=== PATIENT | female | born 1960 | race Caucasian/White ===

== ENCOUNTER 2018-07-09 07:47 | Observation (INO) ==
--- NOTE | 2018-07-07 15:26 | Anesthesiology Consultation ---
Date of Service July 07, 2018 Assessment & Plan Chart Review Chart Review: Acceptable Risk for Surgery and Patient NOT seen in Pre Admission Testing Consults Requested none ASA ASA4 Proposed Anesthesia Anesthesia Type: General Regional Regional Laterality: Left Site: Supraclavicular History Surgery Operation Date: 07/09/18 10:00 Proposed Procedures p Left Proximal Ulna/Olecranon Open Reduction Internal Fixation - Alexandru Mejias DO Height/Weight Height: 5 ft 2 in Weight: 81.647 kg Allergies Allergy/AdvReac Type Severity Reaction Status Date / Time nickel Allergy Intermediate BLISTERS Verified 07/07/18 13:30 No Known Drug Allergies Allergy Verified 07/07/18 13:48 Medications Home Medications Medication Instructions Recorded Confirmed Last Taken albuterol sulfate 2 puff INHALATION QID PRN 07/07/18 07/07/18 Unknown amlodipine 5 mg PO QAM 07/07/18 07/07/18 Unknown aspirin [Aspirin Low Dose] 81 mg PO QAM 07/07/18 07/07/18 Unknown atorvastatin 40 mg PO HS 07/07/18 07/07/18 Unknown calcium carbonate-vitamin D3 1 tab PO BID 07/07/18 07/07/18 Unknown [Calcium 600 + D(3)] carvedilol 12.5 mg PO BID 07/07/18 07/07/18 Unknown duloxetine 20 mg PO BID 07/07/18 07/07/18 Unknown gabapentin 300 mg PO BID 07/07/18 07/07/18 Unknown hydrochlorothiazide 12.5 mg PO QAM 07/07/18 07/07/18 Unknown hydrocodone-acetaminophen 1 tab PO Q6H PRN 07/07/18 07/07/18 Unknown ketorolac 10 mg PO Q8H PRN 07/07/18 07/07/18 Unknown lisinopril 40 mg PO QAM 07/07/18 07/07/18 Unknown nitroglycerin 1 dose SUBLINGUAL UD PRN 07/07/18 07/07/18 Unknown omeprazole 20 mg PO QAM 07/07/18 07/07/18 Unknown tramadol 50 mg PO BID PRN 07/07/18 07/07/18 Unknown Past Medical History Medical History Anxiety CAD (coronary artery disease) Chronic back pain Chronic obstructive pulmonary disease WELL CONTROLLED Congestive heart failure Degenerative disc disease Depression GERD (gastroesophageal reflux disease) History of tooth extraction Hyperlipidemia Hypertension Osteoarthritis Stroke ~2013. TREATED AT [facility]. TAKES ASPIRIN DAILY. NO DEFICITS Past Family History Family History Brother Family hx of colon cancer Father Family hx of colon cancer, Onset Age: 80 Past Surgical History Surgical History History of breast biopsy (-)LEFT History of cardiac cath History of cataract surgery BILATERAL History of section X3 History of colonoscopy Past Anesthesia History No Hx of Anesthesia Complications and No Family Hx of Anesthesia Complications History of PONV No Motion Sickness Screening History of Motion Sickness: No Social History Smoking Status: Former smoker tobacco type: cigarettes Do You Dip or Chew Tobacco: No Smoking End Date: 1999 Hx Alcohol Use: No Hx Substance Use: No substance use type: does not use Exercise / Class Metabolic Activity III < 4 Walking/Shop/Light housework Testing Electrocardiogram Date: 05/25/18 Findings: + SB @ (at 56) Echocardiogram Date: 06/02/18 EF: 55 LV Function: normal RWMA: + none Other Findings: + LVH (mild); no diastolic dysfunction Valvular Disease: + no significant valvular disease Stress Test Date: 06/02/18 Type: DSE Findings: + WNL; no EKG changes and no ischemia Resting EF: 55 Resting RWMA: + none Valvular Disease: no significant valvular disease Cardiac Catheterization Date: 07/30/12 Findings: + pertinent finding (minor non-obstructive CAD) Intervention: no none
--- NOTE | 2018-07-08 14:38 | History and Physical Report ---
DATE OF ADMISSION: 07/09/2018 CHIEF COMPLAINT: Left elbow pain. HISTORY OF PRESENT ILLNESS: Carla is delightful. She is 58. She is compromised. She suffered a severe injury to her left upper extremity, specifically her left elbow and left olecranon. She is scheduled for surgery tomorrow, 07/09/2018, for an open reduction and internal fixation. She was splinted in the ER and sent to our office for evaluation. PAST MEDICAL HISTORY: Heart disease, high cholesterol, hypertension. PAST SURGICAL HISTORY: Wrist surgery, . ALLERGIES: Negative. MEDICATIONS: Lisinopril, aspirin, Flexeril, calcium, ProAir, Ultram, Prilosec. FAMILY HISTORY: Positive for heart disease and diabetes. SOCIAL HISTORY: No alcohol, no tobacco. REVIEW OF SYSTEMS: She denies any blurred vision, double vision, tinnitus, vertigo. Denies any chest pain or palpitation. She does have occasional swelling of hands and feet. Positive for wheezing. Positive for numbness and tingling. Positive for hot and cold intolerance, no bowel and bladder incontinence, and no thyroid issues. PHYSICAL EXAMINATION: GENERAL: She is 5 feet 2 and 185 pounds. Alert and oriented. Mentation normal. VITAL SIGNS: Blood pressure 138/80, pulse 80, respiratory rate is 16. CARDIAC: Normal S1 and S2, 80 beats per minute. LUNGS: Clear. EXTREMITIES: Left elbow swollen. Slight decreased range of motion. Slight decrease in sensation but no breakage of skin. No adenopathy. IMPRESSION: Displaced comminuted fracture, left olecranon. PLAN: Includes open reduction and internal fixation of her left olecranon, [facility].
[~2018-07-09 07:47] MED LIST: LR 15ML/HR IV SCH; SODIUM CHLORIDE 0.9% 1000ML IV SCH
[2018-07-09] MEDS ORDERED: CEFAZOLIN 2,000 MG/15 ML IV PUSH IV ONE (08:10)
[2018-07-09] MEDS ORDERED: CEFAZOLIN 2000MG 2,000 MG/15 ML SYR IV SCH (08:30)
--- NOTE | 2018-07-09 08:34 | History & Physical Bridge Note ---
Date of Service July 09, 2018 History & Physical Bridge Note I have examined the patient, reviewed the History & Physical and in the interval since the performance of the History & Physical I have noted the following changes of clinical significance: no changes noted
[2018-07-09] MEDS ORDERED: PROPOFOL IV EMULSION 10 MG/ML 20 ML VIAL IV ONE (09:23)
[2018-07-09] MEDS ORDERED: CISATRACURIUM BESYLATE IV SOLN 2 MG/ML 10 ML VIAL IV ONE (09:23)
[2018-07-09] MEDS ORDERED: fentaNYL citrate 100 MCG/2 ML VIAL ONE (09:23)
[2018-07-09] MEDS ORDERED: MIDAZOLAM HCL 1 MG/ML 2ML VIAL ONE (09:23)
[2018-07-09] MEDS ORDERED: GLYCOPYRROLATE 0.2 MG/ML VIAL ONE (09:23)
[2018-07-09] MEDS ORDERED: NEOSTIGMINE METHYLSULFATE 5 MG/5 ML SYR ONE (09:23)
[2018-07-09] MEDS ORDERED: SUCCINYLCHOLINE CHLORIDE 20 MG/ML 10 ML VIAL ONE (09:23)
[2018-07-09] MEDS ORDERED: LIDOCAINE HCL 2% 2 ML VIAL/AMP(20MG/ML) INFIL ONE (09:23)
[2018-07-09] MEDS ORDERED: ONDANSETRON INJ 2 MG/ML 2 ML VIAL ONE (09:23)
[2018-07-09] MEDS ORDERED: DEXAMETHASONE SOD INJ 4 MG/ML VIAL ONE (09:23)
[2018-07-09] MEDS ORDERED: HYDROmorphone INJ 2 MG/ML SYR/VIAL ONE (09:28)
[2018-07-09] MEDS ORDERED: ePHEDrine sulfate 50 MG/ML AMP IV PRN (09:45)
[2018-07-09] MEDS ORDERED: HYDROmorphone INJ 1 MG/ML SYRINGE IV PRN (09:45)
[2018-07-09] MEDS ORDERED: ONDANSETRON INJ 2 MG/ML 2 ML VIAL IV PRN ×2 (09:45→14:01)
[2018-07-09] MEDS ORDERED: ATROPINE SULFATE 0.1 MG/ML 10ML SYR IV PRN (09:45)
[2018-07-09] MEDS ORDERED: BUPIVACAINE 0.5 % 5 MG/1 ML MPF 30ML VIAL ONE (11:36)
--- NOTE | 2018-07-09 11:48 | Post Operative Brief Note ---
Immediate Post Op Note v1 Date of Surgery July 09, 2018 Pre & Post Diagnosis Operation Date: 07/09/18 10:00 Pre-Op Diagnosis: Left Olecranon/Proximal Ulna Fracture Post-Op Diagnosis: Left Olecranon/Proximal Ulna Fracture Procedure Operation Date: 07/09/18 10:00 Actual Procedures p Left Proximal Ulna / Olecranon Open Reduction Internal Fixation(Left) - Alexandru Mejias DO Surgeon Alexandru Mejias DO Patient Access Manager Svitlana Estimated Blood Loss 100 Findings Consistent with Post-Op Diagnosis
--- NOTE | 2018-07-09 12:08 | Fluoroscopy Report ---
FL elbow LT 2V CLINICAL HISTORY: Elbow fracture. Internal fixation. COMPARISON STUDY: 07/01/2018 FLUOROSCOPY TIME: 9 seconds. NUMBER OF FLUOROSCOPIC IMAGES: 1 FINDINGS: Intraoperative lateral view of the elbow demonstrate internal fixation of a olecranon fract ure. IMPRESSION: Internally fixated olecranon fracture. Electronically signed by: Mckay Martinez M.D. 07/09/2018 12:07 PM
[2018-07-09] MEDS ORDERED: LABETALOL HCL IV 5 MG/ML 20ML IV ONE (12:14)
[2018-07-09] MEDS: fentaNYL citrate 100 MCG/2 ML VIAL IV PRN ×4 (12:31→13:02)
--- NOTE | 2018-07-09 12:42 | Operative Report ---
DATE OF OPERATION: 07/09/2018 PREOPERATIVE DIAGNOSIS: Severe comminuted fracture, left olecranon. POSTOPERATIVE DIAGNOSIS: Severe comminuted fracture, left olecranon. PROCEDURE: Include open reduction and internal fixation, left olecranon. SURGEON: Alexandru Mejias DO COMPLICATIONS: Zero. BLOOD LOSS: 100 mL. ANESTHETIC: General intubated. IMPLANTS USED: By the [employer], olecranon plate, titanium. DESCRIPTION OF PROCEDURE: The patient was taken to the operating room and general intubated anesthetic provided to the patient, kept in the left lateral decubitus position. We scrubbed her elbow. We prepped her elbow, draped sterilely. There was no breakage of sterile technique. We made a skin incision, fascial incision. I came readily down on to the olecranon. We provisionally reduced the olecranon fracture with provisional K wires and C wires. I was able to readily get a plate on the posterior aspect of the olecranon, locked proximally and distally with assortment of locking screws and cortex screws. I was pleased with the reduction, it was near anatomic. We irrigated, closed in layers with #1 Vicryl, 2-0 and staple gun. Sterile dressings applied. The patient returned to PACU stable. There were no apparent complications. I attest to the content of the Intraoperative Record and any orders documented therein. Any exception s are noted below.
[2018-07-09] MEDS ORDERED: LABETALOL HCL IV 5 MG/ML 20ML IV STA (12:49)
--- NOTE | 2018-07-09 13:31 | Anesthesiology Progress Note ---
Date of Service July 09, 2018 Anesthesia Post Procedure Vital Signs Vital Signs: Temp Pulse Pulse Resp BP Pulse Ox 07/09/18 13:30 36.2 C L 63 13 142/82 H 98 07/09/18 13:20 71 18 145/87 H 97 07/09/18 13:10 60 16 138/82 94 07/09/18 13:00 70 21 146/84 H 92 07/09/18 12:50 60 12 139/84 94 07/09/18 12:40 66 13 150/90 H 90 07/09/18 12:30 65 16 145/91 H 94 07/09/18 12:20 91 H 12 150/92 H 99 07/09/18 12:12 88 18 170/107 H 95 07/09/18 12:02 36.1 C L 85 22 179/102 H 95 07/09/18 08:30 36.8 C 70 20 157/86 H 94 Pain Intensity Left Elbow: Pain Intensity: 4 Notes Mental Status: alert / awake / arousable and participated in evaluation Patient Amnestic to Procedure: Yes Nausea / Vomiting: adequately controlled Pain: adequately controlled Airway Patency, RR, SpO2: stable & adequate BP & HR: stable & adequate Hydration State: stable & adequate Anesthetic Complications: no major complications apparent and Pt Satisfied with anesthetic care
[2018-07-09] MEDS ORDERED: BISACODYL 10 MG SUPP PR PRN (14:01)
[2018-07-09] MEDS ORDERED: HYDROCODONE/ACETAMOPHEN 5/325MG TAB PO PRN (14:01)
[2018-07-09] MEDS ORDERED: TRAMADOL HCL 50 MG TABLET PO PRN (14:01)
[2018-07-09] MEDS ORDERED: ALBUTEROL HFA 8 GM INHALER INH PRN (14:01)
[2018-07-09] MEDS ORDERED: KETOROLAC TROMETHAMINE 10 MG TABLET PO PRN (14:01)
[2018-07-09] MEDS ORDERED: MAGNESIUM HYDROXIDE SUSP 30 ML UDC PO PRN (14:01)
[2018-07-09] MEDS ORDERED: NITROGLYCERIN SL 0.4 MG/TAB TAB SL PRN (14:26)
[2018-07-09] MEDS: OXYCODONE HCL IR 5 MG TAB (IMMEDIATE RELEASE) PO PRN ×2 (14:37→23:45)
[2018-07-09] MEDS ORDERED: NURSING DECISION MEDICATION ONE (16:09)
[2018-07-09] MEDS ORDERED: COUGH DROP (SUGAR FREE) LOZ 24 LOZ/1 BOX BUCCAL PRN (16:12)
[2018-07-09] MEDS ORDERED: COUGH DROP (SUGAR FREE) LOZ 24 LOZ/1 BOX BUCCAL ONE (16:13)
[2018-07-09] MEDS: ACETAMINOPHEN 1,000 MG/100 ML VIAL IV SCH ×2 (16:14→23:39)
[2018-07-09] MEDS: CEFAZOLIN 2000MG 2,000 MG/15 ML SYR IV SCH (19:46)
[2018-07-09] MEDS: DULOXETINE HCL 20 MG CAP PO SCH (20:16)
[2018-07-09] MEDS: CARVEDILOL 12.5 MG TAB PO SCH (20:17)
[2018-07-09] MEDS: GABAPENTIN 300 MG CAP PO SCH (20:17)
[2018-07-09] MEDS: CALCIUM 600MG + VIT D 400 IU TAB PO SCH (20:18)
[2018-07-09] MEDS ORDERED: SENNA 8.6 MG TAB PO SCH (21:00)
[2018-07-09] MEDS ORDERED: ATORVASTATIN 40 MG TAB PO SCH (21:00)
[2018-07-10] MEDS: ACETAMINOPHEN 1,000 MG/100 ML VIAL IV SCH ×2 (01:16→07:29)
[2018-07-10] MEDS: CEFAZOLIN 2000MG 2,000 MG/15 ML SYR IV SCH (01:16)
--- NOTE | 2018-07-10 08:27 | Anesthesiology Progress Note ---
Date of Service July 10, 2018 Anesthesia Post Procedure Vital Signs Vital Signs: Temp Pulse Pulse Pulse Pulse Resp BP 07/10/18 07:09 36.5 C 66 16 165/97 H 07/10/18 04:18 36.5 C 72 16 152/91 H 07/09/18 23:27 36.5 C 74 15 159/91 H 07/09/18 21:10 07/09/18 21:09 07/09/18 20:14 72 157/98 H 07/09/18 19:28 36.5 C 77 16 165/97 H 07/09/18 16:54 36.4 C L 77 18 156/91 H 07/09/18 15:53 36.5 C 70 18 148/85 H 07/09/18 15:00 36.5 C 80 16 161/99 H 07/09/18 14:39 36.9 C 68 18 154/95 H 07/09/18 14:00 36.4 C L 67 14 162/84 H 07/09/18 13:30 36.2 C L 63 13 142/82 H 07/09/18 13:20 71 18 145/87 H 07/09/18 13:10 60 16 138/82 07/09/18 13:00 70 21 146/84 H 07/09/18 12:50 60 12 139/84 07/09/18 12:40 66 13 150/90 H 07/09/18 12:30 65 16 145/91 H 07/09/18 12:20 91 H 12 150/92 H 07/09/18 12:12 88 18 170/107 H 07/09/18 12:02 36.1 C L 85 22 179/102 H 07/09/18 08:30 36.8 C 70 20 157/86 H Pulse Ox 07/10/18 07:09 98 07/10/18 04:18 96 07/09/18 23:27 97 07/09/18 21:10 98 07/09/18 21:09 89 L 07/09/18 20:14 07/09/18 19:28 91 07/09/18 16:54 95 07/09/18 15:53 95 07/09/18 15:00 94 07/09/18 14:39 91 07/09/18 14:00 97 07/09/18 13:30 98 07/09/18 13:20 97 07/09/18 13:10 94 07/09/18 13:00 92 07/09/18 12:50 94 07/09/18 12:40 90 07/09/18 12:30 94 07/09/18 12:20 99 07/09/18 12:12 95 07/09/18 12:02 95 07/09/18 08:30 94 Pain Intensity Left Elbow: Pain Intensity: 8 Notes Mental Status: alert / awake / arousable and participated in evaluation Patient Amnestic to Procedure: Yes Nausea / Vomiting: adequately controlled Pain: adequately controlled Airway Patency, RR, SpO2: stable & adequate BP & HR: stable & adequate Hydration State: stable & adequate Anesthetic Complications: no major complications apparent and Pt Satisfied with anesthetic care
[2018-07-10] MEDS: CALCIUM 600MG + VIT D 400 IU TAB PO SCH (08:48)
[2018-07-10] MEDS: DULOXETINE HCL 20 MG CAP PO SCH (08:48)
[2018-07-10] MEDS: CARVEDILOL 12.5 MG TAB PO SCH (08:48)
[2018-07-10] MEDS: GABAPENTIN 300 MG CAP PO SCH (08:49)
[2018-07-10] MEDS ORDERED: hydroCHLOROthiazide 25 MG TAB PO SCH (09:00)
[2018-07-10] MEDS ORDERED: ASPIRIN 81 MG ECTAB PO SCH (09:00)
[2018-07-10] MEDS ORDERED: LISINOPRIL 40 MG TAB PO SCH (09:00)
[2018-07-10] MEDS ORDERED: AMLODIPINE BESYLATE 5 MG TAB PO SCH (09:00)
[2018-07-10] MEDS ORDERED: PANTOprazole 40 MG TAB PO SCH (09:00)
--- NOTE | 2018-07-10 09:42 | Discharge Summary ---
She is improved and stable this morning. She was admitted yesterday. I thought she would be an outpatient procedure. Observation status. She had increasing pain, some hypertension, was admitted to my service yesterday for her elbow fracture. This morning, she is improved, stable. Blood pressure controlled. Vital signs stable. Alert, oriented. Pain controlled. She will be discharged home later today, improved and stable condition. Instructions given. Precautions given. Followup should be done in about 10 days. Prescription for [place] on her chart.
== END 2018-07-10 12:58 | disposition home or self-care (01) ==
LOC: ASU 07:47 → 3E 07:47

== ENCOUNTER 2022-12-31 07:08 | Inpatient (IN) ==
--- NOTE | 2022-11-14 16:04 | Anesthesiology Consultation ---
Date of Service November 14, 2022 Assessment & Plan (1) Encounter for pre-operative examination: - Check BSG AM DOS - COVID screening: Per assessment on 11/14: No known COVID-19 positive contacts or current COVID-19 related symptoms. Travel screen negative. At surgeon discretion if preop Covid testing being done. - S/P colonoscopy (09/26/22): MAC at [facility]. No issues noted per post-op anesthesia progress note. - Orthopedics visit (11/01/22): "MRI of the cervical spine performed at [facility] only reports available no images available: There is presence of multiple-level degenerative changes with varying spinal stenosis most obvious at C4-5, C5-6 and C6-7 level. There is presence of increased cord signal at C5-6 and C6-7 with concern for cord edema.. At this point patient is neurologically stable but has early findings of cervical myeloradiculopathy. We discussed the treatment options including continued conservative treatment as well as that of surgical intervention. At this point of time patient would like to try physical therapy and consider a neck brace. A CT scan of the cervical spine was ordered for planning any further intervention taking into consideration early signs of myelopathy. Role of pain management discussed. Warning signs were explained. Additional recommendations: * Activity modification * Physical therapy exercises for gentle ROM, muscle relaxation and strengthening as tolerated * Brace for spinal stabilization and pain relief as tolerated * Pain medications as per the primary care. Adverse effects and appropriate precautions were discussed. * If the patient has persistence or worsening of symptoms additional investigations will be recommended. Warning signs have been discussed. Follow up: 2-3 months for reassessment, earlier if any worsening of symptoms."> C-spine xray 11/01/22 with no findings of dynamic instability on flexion-extension views. Mild degenerative changes on 11/05/22 CT C-spine. - Otolaryngology visit (11/01/22): Nasal mass stable since 2019. Discussed surgery but do not feel nasal biopsy needed at this time given carotid disease- recommend waiting until carotid surgery performed and consider surgery for further evaluation of nasal mass 02/2023. - Cardiology visit (11/08/22): "Patient has bradycardia. She also had a failure to achieve target heart rate during stress testing. This may be secondary to chronotropic incompetence or may be secondary to her beta-ashwin. Today, she is also hypotensive which likely accounts for her not feeling well. She does not appear acutely ill. I will reduce her carvedilol dose and she should continue to hydrate adequately.. YOUNG.. She is not having the symptoms at this time. She did have it previously which is why the stress test was performed. Based on findings on the stress test she may have chronotropic incompetence or this may be secondary to deconditioning. She did give maximum effort for the stress test and did not demonstrate any evidence of myocardial ischemia, therefore, it seems less likely that her symptoms are ischemic in origin particularly since she had prior catheterization not demonstrating significant disease and she does not have anginal symptoms on a daily basis. We will obtain an echocardiogram given her history of "congestive heart failure". The echo done as part of her stress test less than 2 years ago was not suggestive of abnormalities which would cause dyspnea... Given her bradycardia and hypotensive status with recent syncopal episode I recommend reducing the carvedilol to 6.25 mg p.o. twice daily.. CAD (coronary artery disease).. Mild nonocclusive. No anginal symptoms. No change in her dyspnea on exertion which was previously evaluated by stress testing and showed no evidence of ischemia. Continue guideline directed medical therapy for secondary prevention of coronary disease with aspirin, statin, beta-ashwin, and JILLIAN inhibitor. Agree with use of Plavix given her history of stroke." > Patient had actually had echo ordered by surgeon's office preoperatively, done 10/30/22- EF 54%, no RWMA, no significant valvular disease ([facility], report scanned into [facility]). - Allergy visit (11/13/22): "The patient has been identified to have severe stenosis of the right internal carotid artery and is due to undergo a right- sided transcarotid artery revascularization procedure with stent placement in the near future. 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 To better objectively assess the presence of a possible allergic contact dermatitis, T.R.U.E. patch testing is being performed. However, it was explained to the patient that in the setting of a supportive clinical history T.R.U.E. patch testing cannot exclude the possibility of a true allergic contact dermatitis. For this reason, regardless of the results of T.R.U.E. patch testing, she may benefit from undergoing her transcarotid artery revascularization procedure with an alternative metal stent other than nickel.. Patient should discuss with her surgeon about undergoing a transcarotid artery revascularization procedure with an alternative metal stent other than nickel" > Allergy Note/recommendations forwarded to surgeon. Nurse with Dr. Montoya's office ([facility]) states that surgeon being made aware of urogynaecologist recommendations. - Case reviewed with Dr. Singh. Patient acceptable risk to proceed with given surgery pending evaluation AM DOS. Chart Review Chart Review: Patient NOT seen in Pre Admission Testing History Surgery Operation Date: 11/20/22 12:20 Proposed Procedures p Right Transcarotid Artery Revascularization - Vladimir Montoya MD Height/Weight Height: 5 ft 2 in Weight: 71.668 kg Allergies Allergy/AdvReac Type Severity Reaction Status Date / Time nickel Allergy Intermediate BLISTERS Verified 11/14/22 15:30 No Known Drug Allergies Allergy NKDA Verified 11/14/22 15:30 Medications Home Medications Medication Instructions Recorded Confirmed Last Taken calcium carbonate 600 mg-vitamin 1 cap PO BID #180 caps 11/16/20 11/14/22 09/24/22 D3 5 mcg (200 unit) capsule (Calcium 600 + D(3)) mometasone 50 mcg/actuation nasal 2 spray intranasal DAILY PRN nasal 11/24/20 11/14/22 09/24/22 spray congestion #51 grams albuterol sulfate 90 mcg/actuation 2 puff inhalation QID PRN SOB 90 12/18/21 11/14/22 09/25/22 aerosol inhaler days #25.5 grams amlodipine 5 mg tablet 5 mg PO QAM #90 tabs 12/18/21 11/14/22 09/24/22 budesonide-formoterol HFA 80 2 puff inhalation BID 90 days 12/18/21 11/14/22 Unknown mcg-4.5 mcg/actuation aerosol #30.6 grams inhaler (Symbicort) hydrochlorothiazide 12.5 mg tablet 12.5 mg PO QAM #90 tabs 12/18/21 11/14/22 09/24/22 metformin 500 mg tablet 500 mg PO BID #180 tabs 12/18/21 11/14/22 09/19/22 omeprazole 20 mg capsule,delayed 20 mg PO QAM #90 caps 12/18/21 11/14/2209/24 release nitroglycerin 0.3 mg sublingual 0.3 mg sublingual Q5M PRN chest 12/25/21 11/14/22 Unknown tablet pain #100 tabs diclofenac sodium 75 mg 75 mg PO BID PRN pain #60 tabs 01/25/22 11/14/22 Unknown tablet,delayed release duloxetine 20 mg capsule,delayed 20 mg PO BID #30 caps 03/22/22 11/14/22 09/24/22 release aspirin 325 mg tablet,delayed 325 mg PO QAM 08/09/22 11/14/22 09/19/22 release ezetimibe 10 mg tablet 10 mg PO QAM 08/09/22 11/14/22 09/24/22 lisinopril 20 mg tablet 20 mg PO QAM 08/09/22 11/14/22 09/24/22 sodium chloride, sodium 1 ea UD 09/18/22 11/14/22 Unknown bicarb-nasal rinse squeeze bottle with packet ([employer] Sinus Rinse Complete with packet) carvedilol 6.25 mg tablet 6.25 mg PO BID #60 tabs 11/08/22 11/14/22 Unknown clopidogrel 75 mg tablet 75 mg PO DAILY 11/08/22 11/14/22 Unknown fluticasone propionate 50 2 spray intranasal DAILY 11/08/22 11/14/22 Unknown mcg/actuation nasal spray,suspension prenat.vits,mildred,[id number] 1 tab PO DAILY 11/08/22 11/14/22 Unknown azelastine 137 mcg (0.1 %) nasal 2 spray intranasal BID PRN nasal 11/13/22 11/14/22 Unknown spray aerosol congestion #30 mL fluticasone propionate 50 2 spray intranasal DAILY #16 grams 11/13/22 11/14/22 Unknown mcg/actuation nasal spray,suspension atorvastatin 40 mg tablet 40 mg PO HS #90 tabs 11/15/22 Unknown Past Medical History Medical History Abnormal MRI, cervical spine C-spine xray 11/01/22 with no findings of dynamic instability on flexion- extension views. Allergic contact dermatitis CAD (coronary artery disease) Mild, non-occlusive per cardiology records Cervical spinal stenosis c-spine MRI 08/30/22 with multiple-level degenerative changes with varying spinal stenosis most obvious at C4-5, C5-6 and C6-7 level. There is presence of increased cord signal at C5-6 and C6-7 with concern for cord edema c-spine xray 11/01/22 with No findings of dynamic instability on flexion- extension views. c-spine CT 11/05/22 with Mild degenerative changes. Conservative management recommended per 10/2022 ortho evaluation with 2-3 month follow-up recommended. 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 If she develops upper respiratory symptoms, then that would be a separate issue." Osteoarthritis Prediabetes "takes metformin for weight loss" per patient Stenosis of right internal carotid artery Neck CTA 08/29/22 [facility]- 80% stenosis of the proximal right ICA > referred to vascular surgery Stroke Approximately 2013, no deficits Past Family History Family History Brother Family hx of colon cancer Diabetes Myocardial infarction Hypertension Father Family hx of colon cancer, Onset Age: 80 Myocardial infarction Hypertension Sister Diabetes Myocardial infarction History of anesthesia problem No further details per patient. Patient has not had any personal issues with anesthesia. Hypertension Other Colorectal cancer Denies family history of Ovarian cancer Prostate cancer Breast cancer Past Surgical History Surgical History History of breast biopsy Left ("negative") History of cardiac cath 2012 - no stents History of cataract surgery R/L History of section X3 History of colonoscopy History of laminectomy History of lumbar laminectomy for spinal cord decompression History of surgery on wrist History of tooth extraction Social History Smoking Status: Former smoker tobacco type: cigarettes Do You Dip or Chew Tobacco: No Smoking End Date: 2003 Hx Alcohol Use: Yes Alcohol type: wine alcohol intake frequency: holidays/special occasions only Hx Substance Use: No substance use type: does not use Lab Results Anesthesia Preop Results Results Anesthesia Widget: WBC 5.99 K/ul (4.8-10.8) 11/13/22 Hgb 13.4 g/dl (12.0-16.0) 11/13/22 Hct 41.2 % (37.0-47.0) 11/13/22 Plt 153 K/uL (130-400) 11/13/22 Na 141 mmol/L (136-145) 11/13/22 K 3.8 mmol/L (3.5-5.1) 11/13/22 Cl 105 mmol/L (98-107) 11/13/22 CO2 30 mmol/L (21-32) 11/13/22 BUN 28 mg/dl (6-23) H 11/13/22 Creat 0.73 mg/dl (0.6-1.2) 11/13/22 Glucose Level 84 mg/dl (70-99(Fasting)) 11/13/22 PT 10.7 Seconds (9.0-12.0) 11/13/22 PTT 24.5 Seconds (21.0-31.0) 11/13/22 INR 1.0 (0.9-1.1) 11/13/22 Blood Type A Positive 11/13/22 Antibody Screen NEGATIVE 11/13/22 Testing Electrocardiogram Date: 11/08/22 SB at 54bpm. "Otherwise normal ECG" Chest X-Ray Date: 09/25/22 Mild blunting of the costophrenic angles may be secondary to atelectasis versus trace pleural effusions. No airspace consolidation typical for pneumonia. Echocardiogram Date: 10/30/22 EF 65%. No RWMA. Mild cLVH. Probably type 2 diastolic function with indeterminate left atrial pressure. Modate LAD. Mild RAD. Trace to mild TR. Stress Test Date: 01/03/21 Type: exercise No evidence of major myocardial ischemia at faitiguing workload at 79% MPHR. Nondiagnostic stress echo d/t failure to achieve target heart rate. Abnormal ECG response to exercise treadmill test. Very poor exercise tolerance. 4.6 METS. Rest echo with normal systolic function and no significant valvular disease. EF 60%. Other Testing Head CTA Date: 08/29/[address] angiogram of the head. Numerous punctate calcifications scattered throughout the brain concerning for neurocysticercosis. Neck CTA Date: 08/29/22 There is an 80% stenosis of the proximal right ICA. Critical spinal canal stenosis at C4-5. Recommend MRI of the cervical spine to evaluate for myelopathy. Cervical spine MRI Date: 08/30/22 Moderate disc degeneration at C4-5, C5-6 and C6-7 with mild disc degeneration at C2-3 and C3-4 with annular disc bulging flattening the ventral thecal sac and flattening the ventral cord at C4-5, C5-6 and C6-7 with increased cord signal at C5-6 and C6-7 concern for cord edema. There is a critical spinal canal stenosis at C4-5, C5-6 and C6-7. There is no evidence of neural foraminal stenosis. There is minimal to mild facet arthropathy at C2-3 through C7-T1 with mild synovitis. No evidence of fracture, infection or tumor. CT sinus Date: 10/15/22 Soft tissue lesions extend posterior to bilateral inferior turbinates into nasopharynx bilaterally, unchanged compared with 03/[address] Left sphenoid sinus air-fluid level/frothy mucus may indicate acute sinusitis. All paranasal sinus outflow tracts are patent, but narrowed (see above). > 5 mm right maxillary sinus mucosal thickening. Trace (< 3 mm) right frontal sinus, bilateral ethmoid air cell, left maxillary sinus, and left sphenoid sinus mucosal thickening. Hypoplastic left frontal sinus. Mild left olfactory recess opacification, without expansion. Scattered brain parenchymal calcifications; anterior calcifications are stable compared with 03/[address] Brain MRI Date: 08/30/22 No evidence of acute intracranial pathology. Moderate nonspecific white matter changes. Findings concerning for a heterogeneously enhancing mass in the nasopharynx associated with a right inferior turbinate. Recommend direct visualization for further evaluation. C-spine xray Date: 11/01/22 FINDINGS Mild anterior subluxation of C4 on C5. No findings of dynamic instability on flexion-extension views. the vertebral body heights are maintained. Multilevel endplate osteophytosis and disc space narrowing, most notable (moderate) at C5-C6. Moderate to severe multilevel facet arthropathy. Vascular calcifications. IMPRESSION Degenerative changes, as above, progressed since the prior exam. No findings of dynamic instability on flexion-extension views. CT C-Spine Date: 11/05/22 There is slight straightening of cervical lordosis. The facets articulate normally. There is minimal spondylolisthesis at C4-5. Prominent anterior osteophytes at C5-6 with smaller osteophytes at C4-5 and C6-7. Mild uncovertebral arthropathy on the right at C5-6 with mild impingement on the neural foramen. There is mild degeneration of the atlantodental articulation. Paravertebral soft tissues are unremarkable. Visualized lung apices are clear. Instantly noted are some polypoid lesions projecting into choanae. There are atherosclerotic calcifications in the carotid bifurcations. IMPRESSION Mild degenerative changes as described.
[~2022-12-31 07:08] MED LIST changes: +CEFAZOLIN 2,000 MG/15 ML SYR IV SCH; +LACTATED RINGER'S 1,000 ML BAG IV SCH; -LR 15ML/HR IV SCH; +SODIUM CHLORIDE 0.9% 1000ML 1,000 ML IV SCH; -SODIUM CHLORIDE 0.9% 1000ML IV SCH
[2022-12-31] MEDS ORDERED: REMIFENTANIL HCL 1 MG VIAL IV ONE (07:32)
--- NOTE | 2022-12-31 07:51 | History & Physical Report ---
Date of Service December 31, 2022 History of Present Illness Primary Care Provider: Kelli Gray MD Chief Complaint: _Follow-up to discuss surgery HPI: _Ms. Rouse is a middle-aged female who presents to Dr. Montoya's vascular surgery clinic today to further discuss surgical options of carotid endarterectomy versus TCAR. She was here to discuss this a few weeks ago, however, she became syncopal and was sent to the emergency room. She states that she is feeling better now. She has not had any symptoms of cerebrovascular insufficiency, including amaurosis, extremity weakness numbness or tingling, difficulty speaking or swallowing, facial droop, sudden onset confusion, other complaints. 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 Prior imaging it indicated a severe stenosis of her right ICA at least 90% by CTA. Current Home Meds: (Last Updated 10/21 16:22) DULoxetine (DULoxetine 20 mg oral delayed release capsule) 20 mg PO bid albuterol (albuterol CFC free 90 mcg/inh MDI) 1 puff inhaled qid PRN: as needed for wheezing amLODIPine (amLODIPine 5 mg oral tablet) 5 mg PO Daily aspirin (aspirin 325 mg oral delayed release tablet) 325 mg PO Daily atorvastatin (atorvastatin 40 mg oral tablet) 40 mg PO qhs budesonide-formoterol (budesonide-formoterol 80 mcg-4.5 mcg/inh inhalation aerosol with adapter) 2 puff inhaled bid calcium-vitamin D (calcium with vitamin D 500 mg) 1 tab PO bid carvedilol (carvedilol 12.5 mg oral tablet) 12.5 mg PO bid clopidogrel (Plavix 75 mg oral tablet) 75 mg PO ONCE diclofenac 75 mg PO bid PRN: as needed for pain ezetimibe (Zetia 10 mg oral tablet) 10 mg PO Daily hydroCHLOROthiazide (hydroCHLOROthiazide 12.5 mg oral capsule) 12.5 mg PO Daily lisinopril (lisinopril 20 mg oral tablet) 20 mg PO Daily metFORMIN (metFORMIN 500 mg oral tablet) 500 mg PO bid mometasone nasal (mometasone 50 mcg/inh nasal spray) 1 spray each nostril Daily PRN: as needed for allergy symptoms nitroglycerin (nitroglycerin 0.3 mg sublingual tablet) 0.3 mg SL q5min PRN: as needed for chest pain omeprazole (omeprazole 20 mg oral delayed release capsule) 20 mg PO Daily Allergies and Sensitivities: Nickel(blisters) Past Medical History: Problems: Carotid stenosis, bilateral Cervical spinal stenosis CAD in [place] artery COPD without exacerbation GERD without esophagitis Hyperlipidemia Right-sided carotid artery disease HTN (hypertension) ROS 10 systems were reviewed. No positive findings other than the HPI OBJECTIVE Physical Exam Constitutional: In general patient is a healthy-appearing well-nourished well- developed middle-aged female in no distress. She is alert and oriented any focal deficits. Her heart is regular, her lungs are clear. Her abdomen is soft nontender with bowel sounds in all 4 quadrants. Her brachial and radial pulses are +3. Femoral pulses are +3, lower EXTR a pulses are +2. She has brisk capillary fill no sign of distal ischemia. ASSESSMENT: _ PLAN: _ 1 ) _carotid stenosis Patient was able to complete her discussion today, despite becoming somewhat vasovagal during the visit again today with similar symptoms to what she was experiencing last time. After discussing carotid endarterectomy versus TCAR with the patient and her family member present, she elects to proceed with right-sided TCAR. The procedure risks benefits and alternatives were discussed with the patient by Dr. Montoya. Patient expresses understanding and agreement to proceed. We will keep you informed as to the outcome of her procedure. Patient was sent to an manager corporate strategy due to her nickel allergy. After being seen she has decided to undergo CEA rather than TCAR due to small amount of nickel in the stent. I have discussed the risks options and benefits of the procedure with the patient. The patient understands the risks options and benefits and agrees to the procedure. Allergies Allergy/AdvReac Type Severity Reaction Status Date / Time nickel Allergy Intermediate BLISTERS Verified 12/31/22 07:32 No Known Drug Allergies Allergy NKDA Verified 12/31/22 07:32 Home Medications Medication Instructions Recorded Confirmed Type calcium carbonate 600 mg-vitamin 1 cap PO BID #180 caps 11/16/20 11/29/22 Rx D3 5 mcg (200 unit) capsule (Calcium 600 + D(3)) mometasone 50 mcg/actuation nasal 2 spray intranasal DAILY PRN nasal 11/24/20 11/29/22 Rx spray congestion #51 grams albuterol sulfate 90 mcg/actuation 2 puff inhalation QID PRN SOB 90 07/05/22 07/18/23 Rx aerosol inhaler days #25.5 grams budesonide-formoterol HFA 80 2 puff inhalation BID 90 days 12/18/21 11/29/22 Rx mcg-4.5 mcg/actuation aerosol #30.6 grams inhaler (Symbicort) hydrochlorothiazide 12.5 mg tablet 12.5 mg PO QAM #90 tabs 12/18/21 11/29/22 Rx metformin 500 mg tablet 500 mg PO BID #180 tabs 12/18/21 11/29/22 Rx omeprazole 20 mg capsule,delayed 20 mg PO QAM #90 caps 12/18/21 11/29/22 Rx release nitroglycerin 0.3 mg sublingual 0.3 mg sublingual Q5M PRN chest 12/25/21 11/29/22 Rx tablet pain #100 tabs diclofenac sodium 75 mg 75 mg PO BID PRN pain #60 tabs 01/25/22 11/29/22 Rx tablet,delayed release aspirin 325 mg tablet,delayed 325 mg PO QAM 08/09/22 11/29/22 History release ezetimibe 10 mg tablet 10 mg PO QAM 08/09/22 11/29/22 History lisinopril 20 mg tablet 20 mg PO QAM 08/09/22 11/29/22 History sodium chloride, sodium 1 ea UD 09/18/22 11/29/22 History bicarb-nasal rinse squeeze bottle with packet (Neilmed Sinus Rinse Complete with packet) carvedilol 6.25 mg tablet 6.25 mg PO BID #60 tabs 11/08/22 11/29/22 Rx clopidogrel 75 mg tablet 75 mg PO DAILY 11/08/22 11/29/22 History prenat.vits,mildred,gik-isge-hstrz 1 tab PO DAILY 11/08/22 11/29/22 History azelastine 137 mcg (0.1 %) nasal 2 spray intranasal BID PRN nasal 11/13/22 11/29/22 Rx spray aerosol congestion #30 mL fluticasone propionate 50 2 spray intranasal DAILY #16 grams 11/13/22 11/29/22 Rx mcg/actuation nasal spray,suspension atorvastatin 40 mg tablet 40 mg PO HS #90 tabs 11/15/22 11/29/22 Rx duloxetine 20 mg capsule,delayed 20 mg PO BID #30 caps 12/16/22 12/31/22 Rx release amlodipine 5 mg tablet (Norvasc) 5 mg PO QAM 12/31/22 12/31/22 History Past Med/Surg History Medical History (Updated 12/31/22 @ 07:30 by Kelli Gray MD) Abnormal MRI, cervical spine C-spine xray 11/01/22 with no findings of dynamic instability on flexion- extension views. Allergic contact dermatitis CAD (coronary artery disease) Mild, non-occlusive per cardiology records Cervical spinal stenosis c-spine MRI 08/30/22 with multiple-level degenerative changes with varying spinal stenosis most obvious at C4-5, C5-6 and C6-7 level. There is presence of increased cord signal at C5-6 and C6-7 with concern for cord edema c-spine xray 11/01/22 with No findings of dynamic instability on flexion- extension views. c-spine CT 11/05/22 with Mild degenerative changes. Conservative management recommended per 10/2022 ortho evaluation with 2-3 month follow-up recommended. 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 If she develops upper respiratory symptoms, then that would be a separate issue." Osteoarthritis Prediabetes "takes metformin for weight loss" per patient Stenosis of right internal carotid artery Neck CTA 08/29/22 [facility]- 80% stenosis of the proximal right ICA > referred to vascular surgery Stroke Approximately 2013, no deficits Surgical History History of breast biopsy Left ("negative") History of cardiac cath 2012 - no stents History of cataract surgery R/L History of section X3 History of colonoscopy History of laminectomy History of lumbar laminectomy for spinal cord decompression History of surgery on wrist History of tooth extraction Family History Brother Family hx of colon cancer Diabetes Myocardial infarction Hypertension Father Family hx of colon cancer, Onset Age: 80 Myocardial infarction Hypertension Sister Diabetes Myocardial infarction History of anesthesia problem Hypertension Other Colorectal cancer Denies family history of Ovarian cancer Prostate cancer Breast cancer Social History Smoking Status: Former smoker Tobacco Type: Cigarettes Age Started Using Tobacco: 10; Age Quit Using Tobacco: 51; Smoking End Date: 2003; Second Hand Exposure: No; Do You Dip or Chew Tobacco: No; Tobacco Cessation Education Requested by Patient: No Hx Alcohol Use: Yes Alcohol type: wine Alcohol type Comment: only on special occassions. Alcohol Intake Frequency: Monthly or Less Hx Substance Use: No Preferred Language: Malay Communication Ability: Effective Visual Impairment: No Limitations Hearing Ability: Normal Wiping Cloth Cutter Required: No Beliefs That Will Affect Care: None marital status: Single Current Living Situation: Family Current Living Situation Comment: With Daughter current occupational status: employed current occupation: [employer] How many Children do You have: 5 Feels Safe at Home: Yes Safety Concerns: Feels Safe At This Time Childhood Exposure to Second-Hand Smoke: Yes Diet: regular caffeine: Yes (coffee) during the past year weight has: remained stable Dental Care, Regularly: No Physical Activity Frequency: 1-2 Times per Week Physical Activity Frequency Comment: walking Seatbelt Use: always Sunscreen Use: No Gender Identity: Female Assistive Devices: None
[2022-12-31 08:26] LABS: BUN Creatinine Ratio 37.3 (10-20); Creatinine Clr Calc Pharmacy 70.9 ml/min; Est GFR (African American) 98.3 ml/min; Est GFR (Non-African American) 84.8 ml/min; Potassium 3.4 mmol/L (3.5-5.1)
[2022-12-31] MEDS ORDERED: PROPOFOL IV EMULSION 10 MG/ML 20 ML VIAL IV ONE (08:43)
[2022-12-31] MEDS ORDERED: ROCURONIUM BROMIDE 10 MG/ML 5 ML VIAL IV ONE (08:43)
[2022-12-31] MEDS ORDERED: ONDANSETRON INJ 2 MG/ML 2 ML VIAL ONE (08:43)
[2022-12-31] MEDS ORDERED: DEXAMETHASONE SOD INJ 4 MG/ML VIAL ONE (08:43)
[2022-12-31] MEDS ORDERED: LIDOCAINE 2% 2 ML VIAL/AMP(20MG/ML) INFIL ONE (08:43)
[2022-12-31] MEDS ORDERED: MIDAZOLAM HCL 1 MG/ML 2ML VIAL ONE (08:44)
[2022-12-31] MEDS ORDERED: fentaNYL citrate PF 100 MCG/2 ML VIAL ONE (08:44)
[2022-12-31] MEDS ORDERED: ePHEDrine sulfate 50 MG/ML AMP ONE (08:52)
[2022-12-31] MEDS ORDERED: PHENYLEPHRINE HCL 10 MG/ML VIAL ONE (08:52)
[2022-12-31] MEDS ORDERED: PROMETHAZINE HCL 6.25 MG in SODIUM CHLORIDE 0.9% 50 ML IV PRN (09:12)
[2022-12-31] MEDS ORDERED: LABETALOL HCL IV 5 MG/ML 20ML IV PRN (09:12)
[2022-12-31] MEDS ORDERED: ONDANSETRON INJ 2 MG/ML 2 ML VIAL IV PRN ×2 (09:12→13:04)
[2022-12-31] MEDS ORDERED: ATROPINE SULFATE 0.1 MG/ML 10ML SYR IV PRN (09:12)
[2022-12-31] MEDS ORDERED: HEPARIN (PORCINE) 1000 UNIT/ML 10 ML (CATH LAB USE ONLY) ONE (09:25)
[2022-12-31] MEDS ORDERED: BUPIVACAINE/EPINEPHRINE 0.5% MPF 1:200,000 30 ML VIAL ONE (09:25)
[2022-12-31] MEDS ORDERED: GELATIN SPONGE SZ 100 ONE (09:25)
[2022-12-31] MEDS ORDERED: ceFAZolin 330 MG/ML 1 GM VIAL ONE (09:25)
[2022-12-31] MEDS ORDERED: THROMBIN FOR SOLN 20000 UNIT KIT ONE (09:25)
[2022-12-31] MEDS ORDERED: LIDOCAINE 1% LOCAL 20 ML VIAL ONE (09:25)
[2022-12-31] MEDS ORDERED: HEPARIN SOD (PORCINE) 1000 UNIT/ML ONE (10:40)
[2022-12-31] MEDS ORDERED: PROTAMINE SULFATE 10 MG/ML 5 ML VIAL IV ONE (11:24)
[2022-12-31] MEDS ORDERED: SUGAMMADEX SODIUM 200 MG/2 ML VIAL IV ONE (11:29)
--- NOTE | 2022-12-31 12:05 | Operative Report ---
Post Operative Report Pre & Post Diagnosis Operation Date: 12/31/22 09:20 Pre-Op Diagnosis: Right Internal Carotid Artery Stenosis Post-Op Diagnosis: Right Internal Carotid Artery Stenosis I identified the patient and participated in the time-out.: Yes Procedure Operation Date: 12/31/22 09:20 Actual Procedures p Right Carotid Endarterectomy with Bovine Graft(Right) - Vladimir Montoya MD Surgeon Vladimir Montoya MD Golf Cart Maker Pepper,PAC Estimated Blood Loss 100 Findings Consistent with Post-Op Diagnosis Specimens plaque Anesthesia Type General Complications none Disposition Accompanied Patient To Recovery: No Disposition: Recovery Room Indications This is a 62-year-old female was found to have severe stenosis of the right internal carotid artery. She does have a nickel allergy therefore she is not a candidate for a TCAR due to the nickel in the stent. Endarterectomy was then recommended. I have discussed the risks options and benefits of the procedure with the patient. The patient understands the risks options and benefits and agrees to the procedure. Description of Procedure The patient was taken to the operating room and placed in supine position. After general anesthesia was accomplished the right side of the neck was prepped and draped in a sterile manner. The patient was identified and a timeout performed. A longitudinal neck incision was then made coursing along the medial border of the sternocleidomastoid muscle. The incision was taken down through the platysmal layer. The facial vein was identified, ligated, and divided. The common carotid artery was then seen. It was dissected free down to the omohyoid muscle. The dissection was carried upward until the external carotid artery and superior thyroid artery was seen. The superior thyroid artery was slung with a 2-0 silk suture. The external carotid was slung with a red rubber vessel loop. Next the dissection was carried up along the internal carotid artery. This was carried upward to beyond the area of narrowing. The hypoglossal nerve was seen and preserved. The patient was heparinized. After adequate heparinization was accomplished, the internal, external, and common carotid arteries were clamped. A longitudinal arteriotomy was started on the common carotid artery and extended upward along the internal carotid artery to a point beyond the area of narrowing. There was calcified plaque of the internal carotid artery origin causing approximately greater than 90% narrowing. A Doppler shunt was then placed in the internal, followed by the common carotid artery and held in place with Gregg clamps. There was good back bleeding seen from the internal carotid artery. The endarterectomy was then started in the appropriate plane on the co mmon carotid artery. This was carried upward and the external carotid was everted and endarterectomized. The endarterectomy was then carried up along the internal carotid artery till a nice feathering breakoff point was accomplished beyond the end of the plaque. The endarterectomy was then carried down further on the common carotid artery. At end of the arteriotomy, the plaque was then transected. Under loop magnification, all loose debris and flaps werer removed. There is no distal flap seen at the end of the endarterectomy site. We did put a tacking stitch in the posterior wall of the internal carotid artery at the end of the arteriotomy site. The arteriotomy then closed using an bovine patch and a running 6-0 Prolene suture. This was done in the usual vascular fashion. Prior to completing the closure, the doppler shunt was removed and the internal and common carotid arteries were reclamped. Backbleeding and forward bleeding was allowed to occur. The flow surface was irrigated with heparinized saline. The final few sutures were then placed and securely tied. Clamps were then removed off the external and common carotid arteries. The clamp was then removed the internal carotid artery. Good distal flow was seen. Adequate hemostasis was seen of the patch. The wound was inspected and adequate hemostasis was obtained. The wound was irrigated with antibiotic solution. It was then closed with a running 3-0 Vicryl suture for the platysmal layer and a 4-0 subcuticular Vicryl suture for the skin edges. Dermabond was used for dressing. The patient left the operation room in satisfactory condition and tolerated the procedure well. All needle and sponge counts were correct at the end of the procedure. Reyna Daly Pac assisted due to lack of resident availability and was necessary for prepping, draping, retraction, wound closure defects, subQ and skin closure and was necessary for the case. I attest to the content of the Intraoperative Record and any orders documented therein. Any exceptions are noted below.
[2022-12-31] MEDS: fentaNYL citrate PF 100 MCG/2 ML VIAL IV PRN ×2 (12:47→12:52)
[2022-12-31] MEDS ORDERED: DICLOFENAC SODIUM 75 MG TABCR PO PRN (13:04)
[2022-12-31] MEDS ORDERED: AZELASTINE HCL 0.1% NASAL 200 SPRAYS/27,400 MCG BTL PRN (13:04)
[2022-12-31] MEDS ORDERED: PHARMACY GLYCEMIC MGMT CONSULT PRN (13:04)
[2022-12-31] MEDS ORDERED: NITROGLYCERIN SL 0.4 MG/TAB TAB SL PRN (13:04)
[2022-12-31] MEDS ORDERED: MoRPHine SULFATE 4 MG/ML 1 ML CARP\\VIAL IV PRN (13:04)
[2022-12-31] MEDS ORDERED: ALBUTEROL HFA 8 GM INHALER INH PRN (13:04)
[2022-12-31] MEDS ORDERED: GLUCOSE 10 TAB/TUBE PO PRN (13:45)
[2022-12-31] MEDS ORDERED: DEXTROSE 50% 50 ML SYRINGE IV PRN (13:45)
[2022-12-31] MEDS ORDERED: CARBOHYDRATES FOR HYPOGLYCEMIA PO PRN (13:45)
[2022-12-31] MEDS ORDERED: GLUCOSE 40% GEL 15 GM TUBE PO PRN (13:45)
[2022-12-31] MEDS ORDERED: GLUCAGON FOR INJ 1 MG VIAL IM PRN (13:45)
--- NOTE | 2022-12-31 13:52 | Pharmacy Report ---
Pharmacy Glycemic Short Note 2 - Date of Service December 31, 2022 - Glycemic Short BSG Results (Last 24 hours): 12/31/22 12/31/22 12/31/22 07:30 07:42 12:24 Glucose 103 H POC Glucose 94 123 H OUTPATIENT ANTIDIABETIC REGIMEN: * Metformin 500 mg PO BIDM HbA1c: 6.3% (12/25/22) ASSESSMENT: * BR is a 62 year old female POD #0 s/p right carotid endarterectomy * Received 4 mg IV dexamethasone in OR * Patient with well-controlled T2DM on metformin - BSGs so far today of 94 and 123 mg/dL * Will hold basal and utilize Novolog only at this time PLAN FOR INPATIENT GLYCEMIC CONTROL: * Hold outpatient oral diabetes medications * Basal insulin * hold * Bolus insulin * NovoLog per scale ACHS or Q6hrs while NPO * Goal Range: Low 110 mg/dL - High 140 mg/dL * Correction Factor: 30 mg/dL/unit * Nutritional / Prandial insulin per carb ratio of 1 unit per 10 grams CHO consumed
--- NOTE | 2022-12-31 13:58 | Critical Care Consultation ---
Date of Consultation December 31, 2022 Assessment & Plan (1) Postop carotid endarterectomy surveillance, encounter for: 62 y/o female with a PMHx of HTN, HLD, prior CVA, COPD, CAD, GERD, anxiety/depression, and carotid artery stenosis presented for CEA with Dr. Montoya on 12/31 now requiring ICU level care in the post-operative setting. Reason Critically Ill: POD0 right carotid endarterectomy NEURO: #History of CVA On Plavix and ASA. 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 Per read of MRI Brain no signs of active infection, but was consistent with prior infection. No acute concerns. Plans to f/u with neurology. RESP: #COPD Controlled on Symbicort. Saturating well on RA CV: #HTN Controlled on amlodipine, carvedilol, lisinopril, HCTZ. Will continue home BP meds. #HLD On statin therapy with atorvastatin 40 mg and ezetimibe. Continue. #Carotid Artery Stenosis #CAD #Vascular Disease Patient with a history of CAD. Did have a stroke at one point. Patient on DAPT and statin therapy. Symptomatic 90% stenosis right internal carotid. Now s/p ca rotid endarterectomy with Dr. Montoya 12/31. HDS at present continue to monitor. #Bradycardic Patient bradycardic on examination. This has been an issue previously. Carvedilol dosing was decreased in October 2022 2/2 to bradycardia. This had resolved at her last cardiology visit prior to procedure. Will continue to monitor. FENGI: #GERD Controlled on omeprazole RENAL/LYTES: Electrolytes monitored and repleted as indicated ENDO: #Elevated HbA1c - last 6.3. On metformin 500 mg BID. ICU hyperglycemia protocol as indicated ID: Cefazolin pre-operatively and for 24 hours post-operatively. Low infectious concern at present HEME/ONC: Pre-op CBC did not show signs of anemia or other hematologic concerns PSYCH: Anxiety and Depression - controlled MSK: #Cervical spinal stenosis [place] [facility] [place], plan for surgery in March Code status: full GI ppx: pantoprazole DVT ppx: SCDs FENGI: heart healthy carb consistent Dispo: ICU Lines: PIV Supervising Physician Co-Signing Physician Notes Patient seen and examined. EMR reviewed. Discussed with bedside critical care nurse and with family practice resident. Agree with assessment plan as noted. Patient is postop day 0 from a carotid endarterectomy. She is hemodynamically stable and doing well. She has no neurological deficits. We will continue to monitor in the ICU with optimal blood pressure control. Additional recommendations will be based on follow-up labs and patient's clinical response. The above recommendations and plan were discussed with the patient, her family, and the bedside critical care nurse. Patient's orders have been well addressed by the vascular surgery service. History of Present Illness Reason for Consultation: post-op care Requesting Physician: Vladimir Montoya MD Attending Physician: Dr. Jm Fay History of Present Illness 62 y/o female with a PMHx of right internal carotid artery stenosis >90% now s/p right carotid endarterectomy with Dr. Montoya 12/31/2022. Patient with history of coronary artery disease - previous cath showed non- occlusive disease. Patient has undergone several previous stress tests as well. Last was unable to meet HR goal. Grade II diastolic dysfunction. EF 60-65%. P atient also with carotid artery stenosis >90%. Patient was symptomatic with occasionally dizziness. Otherwise asymptomatic. Admitted for CEA. Patient not a candidate for stent as she has a bethany allergy and the stent does contain bethany. Patient does have a history of stroke. Unclear when or where patient's stroke was located. Unable to locate in records. Is on DAPT and statin therapy. LDL <70. Well controlled. Patient was also found to have a previous neurocysticercosis infection. Seen inc identally on CTA and confirmed on MRI Brain. No signs of active infection noted on MRI read. Allergies Allergy/AdvReac Type Severity Reaction Status Date / Time nickel Allergy Intermediate BLISTERS Verified 12/31/22 07:32 No Known Drug Allergies Allergy NKDA Verified 12/31/22 07:32 Home Medications Medication Instructions Recorded Confirmed Type calcium carbonate 600 mg-vitamin 1 cap PO BID #180 caps 11/16/20 12/31/22 Rx D3 5 mcg (200 unit) capsule (Calcium 600 + D(3)) mometasone 50 mcg/actuation nasal 2 spray intranasal DAILY PRN nasal 11/24/20 12/31/22 Rx spray congestion #51 grams albuterol sulfate 90 mcg/actuation 2 puff inhalation QID PRN SOB 90 12/18/21 12/31/22 Rx aerosol inhaler days #25.5 grams budesonide-formoterol HFA 80 2 puff inhalation BID 90 days 12/18/21 12/31/22 Rx mcg-4.5 mcg/actuation aerosol #30.6 grams inhaler (Symbicort) hydrochlorothiazide 12.5 mg tablet 12.5 mg PO QAM #90 tabs 12/18/21 12/31/22 Rx metformin 500 mg tablet 500 mg PO BID #180 tabs 12/18/21 12/31/22 Rx omeprazole 20 mg capsule,delayed 20 mg PO QAM #90 caps 12/18/21 12/31/22 Rx release nitroglycerin 0.3 mg sublingual 0.3 mg sublingual Q5M PRN chest 12/25/21 12/31/22 Rx tablet pain #100 tabs diclofenac sodium 75 mg 75 mg PO BID PRN pain #60 tabs 01/25/22 12/31/22 Rx tablet,delayed release aspirin 325 mg tablet,delayed 325 mg PO QAM 08/09/22 12/31/22 History release ezetimibe 10 mg tablet 10 mg PO QAM 08/09/22 12/31/22 History lisinopril 20 mg tablet 20 mg PO QAM 08/09/22 12/31/22 History sodium chloride, sodium 1 ea UD 09/18/22 12/31/22 History bicarb-nasal rinse squeeze bottle with packet (Neilmed Sinus Rinse Complete with packet) carvedilol 6.25 mg tablet 6.25 mg PO BID #60 tabs 11/08/22 12/31/22 Rx clopidogrel 75 mg tablet 75 mg PO DAILY 11/08/22 12/31/22 History prenat.vits,mildred,uda-lubo-aaumf 1 tab PO DAILY 11/08/22 12/31/22 History azelastine 137 mcg (0.1 %) nasal 2 spray intranasal BID PRN nasal 11/13/22 12/31/22 Rx spray aerosol congestion #30 mL fluticasone propionate 50 2 spray intranasal DAILY #16 grams 11/13/22 12/31/22 Rx mcg/actuation nasal spray,suspension atorvastatin 40 mg tablet 40 mg PO HS #90 tabs 11/15/22 12/31/22 Rx duloxetine 20 mg capsule,delayed 20 mg PO BID #30 caps 12/16/22 12/31/22 Rx release amlodipine 5 mg tablet (Norvasc) 5 mg PO QAM 12/31/22 12/31/22 History Patient History Medical History (Updated 12/31/22 @ 13:52 by Shelby Mccoy MD) Abnormal MRI, cervical spine C-spine xray 11/01/22 with no findings of dynamic instability on flexion- extension views. Allergic contact dermatitis CAD (coronary artery disease) Mild, non-occlusive per cardiology records Cervical spinal stenosis c-spine MRI 08/30/22 with multiple-level degenerative changes with varying spinal stenosis most obvious at C4-5, C5-6 and C6-7 level. There is presence of increased cord signal at C5-6 and C6-7 with concern for cord edema c-spine xray 11/01/22 with No findings of dynamic instability on flexion- extension views. c-spine CT 11/05/22 with Mild degenerative changes. Conservative management recommended per 10/2022 ortho evaluation with 2-3 month follow-up recommended. Chronic back pain Chronic cough Chronic obstructive pulmonary disease Chronic rhinitis Degenerative disc disease Depression GERD (gastroesophageal reflux disease) History of CHF (congestive heart failure) Follows with [facility] HTN (hypertension) Hyperlipidemia Left knee DJD Legally blind Mass of cavity of nose per 08/29/22 CT ([facility]) > referred/now following with [facility] otol[facility]ology Neurocysticercosis Per PCP note 10/14/22, "In terms of the possible neurocysticercosis, she is not contagious. If she develops upper respiratory symptoms, then that would be a separate issue." Osteoarthritis Prediabetes "takes metformin for weight loss" per patient Stenosis of right internal carotid artery Neck CTA 08/29/22 [facility]- 80% stenosis of the proximal right ICA > referred to vascular surgery Stroke Approximately 2013, no deficits Surgical History History of breast biopsy Left ("negative") History of cardiac cath 2012 - no stents History of cataract surgery R/L History of section X3 History of colonoscopy History of laminectomy History of lumbar laminectomy for spinal cord decompression History of surgery on wrist History of tooth extraction Family History Brother Family hx of colon cancer Diabetes Myocardial infarction Hypertension Father Family hx of colon cancer, Onset Age: 80 Myocardial infarction Hypertension Sister Diabetes Myocardial infarction History of anesthesia problem Hypertension Other Colorectal cancer Denies family history of Ovarian cancer Prostate cancer Breast cancer Social History Smoking Status: Former smoker Tobacco Type: Cigarettes Age Started Using Tobacco: 10; Age Quit Using Tobacco: 51; Smoking End Date: 2003; Second Hand Exposure: No; Do You Dip or Chew Tobacco: No; Tobacco Cessation Education Requested by Patient: No Hx Alcohol Use: Yes Alcohol type: wine Alcohol type Comment: only on special occassions. Alcohol Intake Frequency: Monthly or Less Hx Substance Use: No Preferred Language: Uzbek Communication Ability: Effective Visual Impairment: No Limitations Hearing Ability: Normal Bottom Painter Required: No Beliefs That Will Affect Care: None marital status: Single Current Living Situation: Family Current Living Situation Comment: With Daughter current occupational status: employed current occupation: [employer] How many Children do You have: 5 Feels Safe at Home: Yes Safety Concerns: Feels Safe At This Time Childhood Exposure to Second-Hand Smoke: Yes Diet: regular caffeine: Yes (coffee) during the past year weight has: remained stable Dental Care, Regularly: No Physical Activity Frequency: 1-2 Times per Week Physical Activity Frequency Comment: walking Seatbelt Use: always Sunscreen Use: No Gender Identity: Female Assistive Devices: None Review of Systems Review of Systems: See HPI Physical Exam Physical Exam: Gen: well appearing female in NAD Skin: 8-9 cm incision right neck, clean, dry, intact, no signs of purulence or dehiscence Resp: CTAB no wheezing no increased work of breathing CV: bradycardic, regular rhythm, no m/r/g, clinically well perfused Abd: non-distended, soft Psych: appropriate mood and affect Neuro: alert and oriented, neurovascularly intact Results & Data Results & Data Vital Signs (Past 12 Hours) Vital Signs Temp Pulse Pulse Resp BP BP Pulse Ox 12/31/22 13:30 36.3 C L 50 L 14 116/68 115/50 L 93 12/31/22 13:20 36.3 C L 50 L 17 113/67 117/51 L 93 12/31/22 12:40 57 L 16 142/62 H 129/81 100 12/31/22 13:10 36.3 C L 52 L 13 118/70 119/53 L 94 12/31/22 13:00 36.3 C L 52 L 14 125/73 124/55 L 95 12/31/22 12:50 53 L 14 124/73 124/55 L 97 12/31/22 12:30 64 16 162/68 H 144/82 H 100 12/31/22 12:22 36.2 C L 70 14 164/94 H 98 12/31/22 07:43 12/31/22 07:43 36.5 C 61 20 170/97 H 94 O2 Del Method O2 Flow Rate 12/31/22 13:30 Room Air 12/31/22 13:20 Room Air 12/31/22 12:40 Oxymask 3 12/31/22 13:10 Room Air 12/31/22 13:00 Room Air 12/31/22 12:50 Oxymask 3 12/31/22 12:30 Oxymask 5 12/31/22 12:22 Oxymask 7 12/31/22 07:43 Room Air 12/31/22 07:43 Room Air Laboratory Results 12/31/22 07:42 Resident Activity Tracking Resident Involvement: Resident Care Provided Care Provided: Adult Hospital Medicine
--- NOTE | 2022-12-31 14:35 | Anesthesiology Progress Note ---
Date of Service December 31, 2022 Anesthesia Post Procedure Vital Signs Vital Signs: Temp Pulse Pulse Resp BP BP Pulse Ox 12/31/22 13:30 36.3 C L 50 L 14 116/68 115/50 L 93 12/31/22 13:20 36.3 C L 50 L 17 113/67 117/51 L 93 12/31/22 12:40 57 L 16 142/62 H 129/81 100 12/31/22 13:10 36.3 C L 52 L 13 118/70 119/53 L 94 12/31/22 13:00 36.3 C L 52 L 14 125/73 124/55 L 95 12/31/22 12:50 53 L 14 124/73 124/55 L 97 12/31/22 12:30 64 16 162/68 H 144/82 H 100 12/31/22 12:22 36.2 C L 70 14 164/94 H 98 12/31/22 07:43 12/31/22 07:43 36.5 C 61 20 170/97 H 94 O2 Del Method O2 Flow Rate 12/31/22 13:30 Room Air 12/31/22 13:20 Room Air 12/31/22 12:40 Oxymask 3 12/31/22 13:10 Room Air 12/31/22 13:00 Room Air 12/31/22 12:50 Oxymask 3 12/31/22 12:30 Oxymask 5 12/31/22 12:22 Oxymask 7 12/31/22 07:43 Room Air 12/31/22 07:43 Room Air Pain Intensity Lower Back: Pain Intensity: 4 Right Neck: Pain Intensity: 2 Transfer of Care Handoff Completed per policy Notes Mental Status: alert / awake / arousable Patient Amnestic to Procedure: Yes Nausea / Vomiting: adequately controlled Pain: adequately controlled Airway Patency, RR, SpO2: stable & adequate BP & HR: stable & adequate Hydration State: stable & adequate Anesthetic Complications: no major complications apparent
[2022-12-31] MEDS: ceFAZolin 2000MG 2,000 MG/15 ML SYR IV SCH ×2 (14:39→21:58)
[2022-12-31] MEDS: INSULIN ASPART PER UNIT CHARGE SC SCH ×3 (14:39→20:16)
[2022-12-31] MEDS: LACTATED RINGER'S 1,000 ML IV SCH ×2 (14:39→22:01)
--- NOTE | 2022-12-31 15:39 | Billing Data ---
Date of Service December 31, 2022 Coding Level of Care Code 43650 IN/OBS CONSULT LVL 4,60M
[2022-12-31] MEDS: oxyCODONE/ACETAMINOPHEN 5mg/325mg TAB PO PRN ×2 (18:08→22:08)
[2022-12-31] MEDS: carvediloL 6.25 MG TAB PO SCH (20:09)
[2022-12-31] MEDS: DULoxetine HCL 20 MG CAP PO SCH (20:51)
[2022-12-31] MEDS: CALCIUM 600MG + VIT D 400 IU TAB PO SCH (20:51)
[2022-12-31] MEDS ORDERED: ATORVASTATIN 40 MG TAB PO SCH (21:00)
[2023-01-01] MEDS: oxyCODONE/ACETAMINOPHEN 5mg/325mg TAB PO PRN (04:52)
[2023-01-01] MEDS: LACTATED RINGER'S 1,000 ML IV SCH (06:29)
--- NOTE | 2023-01-01 07:11 | Critical Care Progress Note ---
Date of Service January 01, 2023 Assessment & Plan (1) Postop carotid endarterectomy surveillance, encounter for: Plan: 62 y/o female with a PMHx of HTN, HLD, prior CVA, COPD, CAD, GERD, anxiety/depression, and carotid artery stenosis presented for CEA with Dr. Montoya on 12/31 initially required ICU level care now stable for de-escalation of care from a critical care stand point. Reason Critically Ill: POD1 right carotid endarterectomy NEURO: #History of CVA On Plavix and ASA. 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 Per read of MRI Brain no signs of active infection, but was consistent with prior infection. No acute concerns. Plans to f/u with neurology. #Numbness Right earlobe numbness. Likely superficial nerve damage. May resolve. Would monitor outpatient. RESP: #COPD Controlled on Symbicort. Saturating well on RA CV: #HTN Controlled on amlodipine, carvedilol, lisinopril, HCTZ. Will continue home BP meds. #HLD On statin therapy with atorvastatin 40 mg and ezetimibe. Continue. #Carotid Artery Stenosis #CAD #Vascular Disease Patient with a history of CAD. Did have a stroke at one point. Patient on DAPT and statin therapy. Symptomatic 90% stenosis right internal carotid. Now s/p car otid endarterectomy with Dr. Montoya 12/31. HDS throughout hospital course. #Bradycardic Patient bradycardic during hospital stay. This has been an issue in the past and carvedilol dosing was decreased in October 2022. Will defer to outpatient cardiology for management. LANAI: #GERD Controlled on omeprazole RENAL/LYTES: Electrolytes monitored and repleted as indicated ENDO: #Elevated HbA1c - last 6.3. On metformin 500 mg BID at home. ICU hyperglycemia protocol per pharmacy ID: Cefazolin pre-operatively and for 24 hours post-operatively. Low infectious concern at present HEME/ONC: Pre-op CBC did not show signs of anemia or other hematologic concerns PSYCH: Anxiety and Depression - controlled MSK: #Cervical spinal stenosis Follows with [facility] [place] ortho, plan for surgery in March Code status: full GI ppx: pantoprazole DVT ppx: SCDs FENGI: heart healthy carb consistent Dispo: per Dr. Montoya Lines: remove art line Admission and Anticipated Discharge Date Admission Date: December 31, 2022 Supervising Physician Co-Signing Physician Notes Patient seen and examined. EMR reviewed. Discussed with family practice resident and agree with plan as noted above. Also discussed with bedside critical care nurse and on multidisciplinary rounds. The patient is doing well postoperatively. Her pain is adequately controlled. No neurological complaints. She been hemodynamically stable. She is out of bed to chair. She is tolerating a diet. No difficulty with chewing or swallowing. Her critical care issues appear resolved. Critical care will sign off. Disposition per vascular surgery. Feel free to contact us with questions or concerns. Subjective Patient seen at bedside this AM. Doing well. Pain well controlled. No CP/SOB/calf pain/fevers/chills. There is some numbness on her right ear lobe. No tingling. No weakness. No other numbness. No concerns this AM. Review of Systems Review of Systems: See HPI Physical Exam Physical Exam: Gen: well appearing female in NAD Skin: 8-9 cm incision right neck, clean, dry, intact, no signs of purulence or dehiscence Resp: CTAB no wheezing no increased work of breathing CV: RRR, no m/r/g, clinically well perfused Abd: non-distended Psych: appropriate mood and affect Neuro: alert and oriented, neurovascularly intact Results & Data Results & Data Vital Signs (Past 12 Hours) Last Vitals: BP: 141/81 HR: 48 RR: 22 Temp: 36.5C O2 Sat: 94 on RA Resident Activity Tracking Resident Involvement: Resident Care Provided Care Provided: Adult Hospital Medicine
[2023-01-01] MEDS: INSULIN ASPART PER UNIT CHARGE SC SCH ×2 (08:07→11:40)
[2023-01-01] MEDS: carvediloL 6.25 MG TAB PO SCH (08:11)
[2023-01-01] MEDS ORDERED: PRENATAL VITAMIN 1 TAB PO SCH (09:00)
[2023-01-01] MEDS ORDERED: lisinopril 20 MG TAB PO SCH (09:00)
[2023-01-01] MEDS ORDERED: amLODIPine BESYLATE 5 MG TAB PO SCH (09:00)
[2023-01-01] MEDS ORDERED: ASPIRIN 325 MG ECTAB PO SCH (09:00)
[2023-01-01] MEDS ORDERED: FLUTICASONE/VILANTEROL 100/25MCG 14 PUFFS/INHALER INH SCH (09:00)
[2023-01-01] MEDS ORDERED: CLOPIDOGREL BISULFATE 75 MG TAB PO SCH (09:00)
[2023-01-01] MEDS ORDERED: FLUTICASONE PROPIONATE NA SPR 16 GM BTL SCH (09:00)
[2023-01-01] MEDS ORDERED: EZETIMIBE 10 MG TABLET PO SCH (09:00)
[2023-01-01] MEDS ORDERED: hydroCHLOROthiazide 25 MG TAB PO SCH (09:00)
[2023-01-01] MEDS ORDERED: PANTOprazole 40 MG TAB PO SCH (09:00)
[2023-01-01] MEDS: DULoxetine HCL 20 MG CAP PO SCH (09:08)
[2023-01-01] MEDS: CALCIUM 600MG + VIT D 400 IU TAB PO SCH (09:09)
--- NOTE | 2023-01-01 10:19 | Billing Data ---
Date of Service January 01, 2023 Coding Level of Care Code 61146 SUB INP/OBS CARE
--- NOTE | 2023-01-01 11:28 | Pharmacy Report ---
Pharmacy Glycemic Short Note 2 - Date of Service January 01, 2023 - Glycemic Short BSG Results (Last 24 hours): 12/31/22 12/31/22 12/31/22 12:24 14:16 16:27 POC Glucose 123 H 127 H 145 H 12/31/22 01/01/23 20:15 07:27 POC Glucose 134 H 114 H OUTPATIENT ANTIDIABETIC REGIMEN: * Metformin 500 mg PO BIDM * HbA1c: 6.3% (12/25/22) ASSESSMENT: 01/01: * Received 6 units of Novolog with dinner last night. BSGs were: 21-253-111-134 mg/dL. * Fasting BSG is 114 mg/dL this AM. Continue to hold basal insulin. * Will monitor BSGs for today as steroids wear off and patient starts to eat more. Other stressors remain stable. * Likely can resume Metformin tomorrow. 12/31: * BR is a 62 year old female POD #0 s/p right carotid endarterectomy * Received 4 mg IV dexamethasone in OR * Patient with well-controlled T2DM on metformin - BSGs so far today of 94 and 123 mg/dL * Will hold basal and utilize Novolog only at this time PLAN FOR INPATIENT GLYCEMIC CONTROL: * Hold outpatient oral diabetes medications * Basal insulin * Hold * Bolus insulin * NovoLog per scale ACHS or Q6hrs while NPO * Goal Range: Low 110 mg/dL - High 140 mg/dL * Correction Factor: 30 mg/dL/unit * Nutritional / Prandial insulin per carb ratio of 1 unit per 10 grams CHO consumed
--- NOTE | 2023-01-01 12:49 | Surgery Progress Note ---
Date of Service January 01, 2023 Assessment & Plan (1) Status post carotid endarterectomy: Plan: Pt doing well post op. D/C home today. Admission and Anticipated Discharge Date Admission Date: December 31, 2022 Subjective 62 yo f POD #1 after R CEA, seen in f/u today. Pt states feeling generally well, a little tired. Denies any new complaints. Review of Systems Review of Systems: All systems reviewed & are unremarkable except as noted in HPI & below Physical Exam Constitutional: WD/WN, vitals as above Neck: trachea midline R neck incision C/D/I, mild local edema, tenderness. No ecchymosis or hematoma Respiratory: normal respiratory effort, lungs clear to auscultation Auscult ation: + diminished lung sounds Cardiovascular: Rate/Rhythm: regular rate and regular rhythm Vessels: femor al pulses present; + abnormal peripheral pulses Extremities: normal capillary refill Gastrointestinal (Abdomen): Inspection/Auscultation: abdomen normal to inspection and normal bowel sounds Percussion/Palpation: abdomen soft; abdomen nontender Musculoskeletal: no cyanosis or clubbing, extremities motor strength 5/5 Skin: no rashes, warm and dry Neurologic: moves all extremities and awake; no focal motor deficits and not confused Psychiatric: A+Ox3, euthymic affect Results & Data Vital Signs (Past 12 Hours) Vital Signs Temp Pulse Pulse Pulse Resp BP BP 01/01/23 12:11 36.5 C 50 L 61 14 141/81 H 01/01/23 10:00 55 L 14 01/01/23 10:00 127/71 01/01/23 09:30 71 16 01/01/23 09:00 54 L 18 01/01/23 09:00 112/63 01/01/23 08:30 60 22 01/01/23 08:00 57 L 14 01/01/23 08:00 127/71 01/01/23 07:30 70 22 01/01/23 07:00 46 L 18 01/01/23 07:00 122/71 01/01/23 07:14 48 L 01/01/23 06:00 36.5 C 50 L 22 141/81 H 01/01/23 05:00 46 L 16 134/77 01/01/23 06:00 50 L 22 01/01/23 06:00 133/77 01/01/23 05:00 46 L 16 07/19/23 05:00 129/72 01/01/23 04:01 49 L 21 01/01/23 04:01 119/66 01/01/23 04:00 47 L 15 01/01/23 03:00 46 L 14 01/01/23 02:00 45 L 14 01/01/23 02:00 121/73 01/01/23 01:00 47 L 15 01/01/23 01:00 119/68 01/01/23 04:00 36.6 C 45 L 14 124/74 01/01/23 04:00 36.6 C 45 L 14 125/74 01/01/23 03:00 46 L 14 132/76 01/01/23 02:00 46 L 15 128/74 01/01/23 01:00 47 L 16 124/74 01/01/23 04:00 46 L 132/75 BP Pulse Ox O2 Del Method 01/01/23 12:11 133/77 95 01/01/23 10:00 95 Room Air 01/01/23 10:00 01/01/23 09:30 01/01/23 09:00 94 Room Air 01/01/23 09:00 01/01/23 08:30 93 Room Air 01/01/23 08:00 94 Room Air 01/01/23 08:00 01/01/23 07:30 93 Room Air 01/01/23 07:00 93 Room Air 01/01/23 07:00 01/01/23 07:14 01/01/23 06:00 133/77 94 Room Air 01/01/23 05:00 129/72 93 Room Air 01/01/23 06:00 94 01/01/23 06:00 01/01/23 05:00 93 01/01/23 05:00 01/01/23 04:01 94 01/01/23 04:01 01/01/23 04:00 94 01/01/23 03:00 01/01/23 02:00 93 01/01/23 02:00 01/01/23 01:00 93 01/01/23 01:00 01/01/23 04:00 119/66 94 Room Air 01/01/23 04:00 119/66 94 Room Air 01/01/23 03:00 94 Room Air 01/01/23 02:00 121/71 93 Room Air 01/01/23 01:00 93 Room Air 01/01/23 04:00
--- NOTE | 2023-01-02 08:43 | Discharge Summary ---
Date of Service January 02, 2023 Admission HPI Per Admitting Provider Chief Complaint: _Follow-up to discuss surgery HPI: _Ms. Rouse is a middle-aged female who presents to Dr. Montoya's vascular surgery clinic today to further discuss surgical options of carotid endarterectomy versus TCAR. She was here to discuss this a few weeks ago, however, she became syncopal and was sent to the emergency room. She states that she is feeling better now. She has not had any symptoms of cerebrovascular insufficiency, including amaurosis, extremity weakness numbness or tingling, difficulty speaking or swallowing, facial droop, sudden onset confusion, other complaints. 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 Prior imaging it indicated a severe stenosis of her right ICA at least 90% by CTA. Current Home Meds: (Last Updated 10/21 16:22) DULoxetine (DULoxetine 20 mg oral delayed release capsule) 20 mg PO bid albuterol (albuterol CFC free 90 mcg/inh MDI) 1 puff inhaled qid PRN: as needed for wheezing amLODIPine (amLODIPine 5 mg oral tablet) 5 mg PO Daily aspirin (aspirin 325 mg oral delayed release tablet) 325 mg PO Daily atorvastatin (atorvastatin 40 mg oral tablet) 40 mg PO qhs budesonide-formoterol (budesonide-formoterol 80 mcg-4.5 mcg/inh inhalation aerosol with adapter) 2 puff inhaled bid calcium-vitamin D (calcium with vitamin D 500 mg) 1 tab PO bid carvedilol (carvedilol 12.5 mg oral tablet) 12.5 mg PO bid clopidogrel (Plavix 75 mg oral tablet) 75 mg PO ONCE diclofenac 75 mg PO bid PRN: as needed for pain ezetimibe (Zetia 10 mg oral tablet) 10 mg PO Daily hydroCHLOROthiazide (hydroCHLOROthiazide 12.5 mg oral capsule) 12.5 mg PO Daily lisinopril (lisinopril 20 mg oral tablet) 20 mg PO Daily metFORMIN (metFORMIN 500 mg oral tablet) 500 mg PO bid mometasone nasal (mometasone 50 mcg/inh nasal spray) 1 spray each nostril Daily PRN: as needed for allergy symptoms nitroglycerin (nitroglycerin 0.3 mg sublingual tablet) 0.3 mg SL q5min PRN: as needed for chest pain omeprazole (omeprazole 20 mg oral delayed release capsule) 20 mg PO Daily Allergies and Sensitivities: Nickel(blisters) Past Medical History: Problems: Carotid stenosis, bilateral Cervical spinal stenosis CAD in [place] artery COPD without exacerbation GERD without esophagitis Hyperlipidemia Right-sided carotid artery disease HTN (hypertension) ROS 10 systems were reviewed. No positive findings other than the HPI OBJECTIVE Physical Exam Constitutional: In general patient is a healthy-appearing well-nourished well- developed middle-aged female in no distress. She is alert and oriented any focal deficits. Her heart is regular, her lungs are clear. Her abdomen is soft nontender with bowel sounds in all 4 quadrants. Her brachial and radial pulses are +3. Femoral pulses are +3, lower EXTR a pulses are +2. She has brisk capillary fill no sign of distal ischemia. ASSESSMENT: _ PLAN: _ 1 ) _carotid stenosis Patient was able to complete her discussion today, despite becoming somewhat vasovagal during the visit again today with similar symptoms to what she was experiencing last time. After discussing carotid endarterectomy versus TCAR with the patient and her family member present, she elects to proceed with righ t-sided TCAR. The procedure risks benefits and alternatives were discussed with the patient by Dr. Montoya. Patient expresses understanding and agreement to proceed. We will keep you informed as to the outcome of her procedure. Patient was sent to an dance director due to her nickel allergy. After being seen she has decided to undergo CEA rather than TCAR due to small amount of nickel in the stent. I have discussed the risks options and benefits of the procedure with the patient. The patient understands the risks options and benefits and agrees to the procedure. Admission Exam Per Admitting Provider Constitutional: In general patient is a healthy-appearing well-nourished well- developed middle-aged female in no distress. She is alert and oriented any focal deficits. Her heart is regular, her lungs are clear. Her abdomen is soft nontender with bowel sounds in all 4 quadrants. Her brachial and radial pulses are +3. Femoral pulses are +3, lower EXTR a pulses are +2. She has brisk capillary fill no sign of distal ischemia. Principal Diagnosis 1. s/p R CEA 2. R ICA stenosis Discharge Exam Constitutional WD/WN, vitals as above Neck trachea midline Respiratory normal respiratory effort, lungs clear to auscultation Auscultation: + diminished lung sounds Cardiovascular Rate/Rhythm: regular rate and regular rhythm Vessels: femoral pulses present; + abnormal peripheral pulses Extremities: normal capillary refill Gastrointestinal (Abdomen) Inspection/Auscultation: abdomen normal to inspection and normal bowel sounds Percussion/Palpation: abdomen soft; abdomen nontender Musculoskeletal no cyanosis or clubbing, extremities motor strength 5/5 Skin no rashes, warm and dry Neurologic moves all extremities and awake; no focal motor deficits and not confused Psychiatric A+Ox3, euthymic affect Discharge Data Allergies Allergy/AdvReac Type Severity Reaction Status Date / Time nickel Allergy Intermediate BLISTERS Verified 12/31/22 07:32 No Known Drug Allergies Allergy NKDA Verified 12/31/22 07:32 Consultations 12/31/22 13:04 Consult Hand Etcher Routine Procedures Performed Operation Date: 12/31/22 09:20 Actual Procedures p Right Carotid Endarterectomy with Bovine Graft(Right) - Vladimir Montoya MD Hospital Course (1) Status post carotid endarterectomy: Pt doing well post op day 1. D/C home today. Total Time Total Time Spent Total Time Spent (In Minutes): 0 Discharge Plan Discharge Items Patient Disposition: Home - Self-Care Reason For Visit: Right Internal Carotid Artery Stenosis Discharge Diagnosis: 1. s/p R CEA 2. R ICA stenosis Condition on Discharge: Good Activity: Per Instructions section Non-emergency contact: Primary Care Provider and Surgeon Call non-emergency contact if: you have any medication questions, your pain is not controlled, your pain is worsening, your pain is concerning for you, you have a fever, your wound has increased redness and your wound has increased drainage Follow-up/Referrals: Kelli Gray MD [Primary Care Provider] - 01/08/23 11:30 am (Follow up with your PCP within 2 weeks) Vladimir Montoya MD [Physician] - 01/20/23 3:00 pm (Follow up with Dr Montoya or Reyna Daly PA-C, within 2 weeks.) Diet: Regular and Heart Healthy Addtl Attending Provider Instructions: SPECIAL CARE INSTRUCTIONS: Medications: * Continue to take Aspirin as directed. Incision Care: * You may shower, but do not rub incision. You may let the warm soapy water run over it. Be sure to dry the incision well after bathing. * Do not shave directly over the incision until it is healed. * DO NOT IMMERSE THE INCISION IN A TUB/POOL/etc. UNTIL HEALED. Restrictions: * Do not drive for at least one week or if you are still taking any narcotic pain medication. * Do not lift anything heavier than a gallon of milk for one week after going home. Possible Complications: * Numbness - It is normal to have some numbness around the incision. Numbness can extend beyond the incision to areas of the neck, ear and face. The numbness is due to bruising of nerves during the surgery and will gradually improve over a period of months. * Hoarseness/Difficulty Speaking and Swallowing - The bruising of nerves in the neck can also cause a hoarse voice, difficulty speaking or swallowing. This may improve over time, HOWEVER, if it continues for more than a few days please contact our office ([phone]). * Excessive Swelling - There will be some swelling immediately after surgery which usually resolves within one week. If you notice that the swelling is getting worse, notify your surgeon ([phone]). * Drainage/Bleeding - If there is any drainage or bleeding, it should be a very small amount (less than a teaspoon per day). If you have excessive bleeding or drainage from the incision, call your surgeon ([phone]) right away. ACTIVATION OF EMERGENCY MEDICAL SYSTEM: Call 911, immediately, if you experience any of the following: Warning Signs and Symptoms of Stroke: * Sudden numbness or weakness of the face, arm or leg, especially on one side of the body * Sudden confusion, trouble speaking or understanding * Sudden trouble seeing in one or both eyes * Sudden trouble walking, dizziness, loss of balance or coordination * Sudden severe headache with no cause Do not delay calling 911 if you experience any warning signs or symptoms of a stroke. Delay in seeking medical attention may affect what treatments can be given to you. Risk Factors for Stroke: You can reduce your chances of stroke by working with your medical provider to adopt a healthy lifestyle. Some specific ways to lower your chance of stroke are: * If you are a smoker, now is the time to stop smoking cigarettes * If you are diabetic, improve the control of your blood sugars * Avoid excessive amounts of alcohol * Control high blood pressure * Lose weight if you are overweight * Be sure to lead an active lifestyle * Eat a healthy diet low in salt, cholesterol and fat You should know about other risk factors for stroke that you are unable to control. These include: * Age 55 years or older * Male gender * Certain racial groups: , or / * Family History of Stroke, Mini stroke or Heart Attack * Sickle Cell Disease You will be receiving a call from the Vascular Surgery Nurse after you are discharged. FOLLOW UP VISIT: It is important for you to keep your follow up appointments with your medical provider. Keep any scheduled doctor appointments. Stand-Alone Forms: [facility], Smoking Cessation Medications and DC Order Prescriptions: New oxycodone-acetaminophen [Percocet] 5-325 mg Tablet 1 - 2 tab PO Q4H PRN (Reason: Pain) Qty: 15 0RF Continued Calcium 600 + D(3) 600 mg calcium- 200 unit capsule 1 cap PO BID Qty: 180 3RF mometasone 50 mcg/actuation spray,non-aerosol 2 spray intranasal DAILY PRN (Reason: nasal congestion) Qty: 51 3RF Rx Instructions: administer into each nostril. 3 month supply. nitroglycerin 0.3 mg tablet, sublingual 0.3 mg sublingual Q5M PRN (Reason: chest pain) Qty: 100 1RF Rx Instructions: do not exceed 3 doses per episode atorvastatin 40 mg tablet 40 mg PO HS Qty: 90 3RF duloxetine 20 mg capsule,delayed release(DR/EC) 20 mg PO BID Qty: 30 0RF diclofenac sodium 75 mg tablet,delayed release (DR/EC) 75 mg PO BID PRN (Reason: pain) Qty: 60 2RF Rx Instructions: Take with food fluticasone propionate 50 mcg/actuation spray,suspension 2 spray intranasal DAILY Qty: 16 11RF Rx Instructions: administer into each nostril azelastine 137 mcg (0.1 %) aerosol,spray 2 spray intranasal BID PRN (Reason: nasal congestion) Qty: 30 11RF Rx Instructions: administer into each nostril albuterol sulfate 90 mcg/actuation HFA aerosol inhaler 2 puff INHALATION QID PRN (Reason: SOB) 90 Days Qty: 25.5 3RF budesonide-formoterol [Symbicort] 80-4.5 mcg/actuation HFA aerosol inhaler 2 puff inhalation BID 90 Days Qty: 30.6 3RF hydrochlorothiazide 12.5 mg tablet 12.5 mg PO QAM Qty: 90 3RF metformin 500 mg tablet 500 mg PO BID Qty: 180 3RF Rx Instructions: 1st says last filled 09/03/22 30 day supply of 1,000 mg bid . omeprazole 20 mg capsule,delayed release(DR/EC) 20 mg PO QAM Qty: 90 3RF clopidogrel 75 mg tablet 75 mg PO DAILY prenat.vits,mildred,[id number]-fgyho Tablet 1 tab PO DAILY carvedilol 6.25 mg tablet 6.25 mg PO BID Qty: 60 11RF Rx Instructions: must administer with a meal/food amlodipine [Norvasc] 5 mg tablet 5 mg PO QAM lisinopril 20 mg tablet 20 mg PO QAM aspirin 325 mg tablet,delayed release (DR/EC) 325 mg PO QAM ezetimibe 10 mg tablet 10 mg PO QAM Neilmed Sinus Rinse Complete Packet With Rinse Device 1 ea UD Discharge Orders: Discharge Order (Routine); Ordered 01/01/23 Ordered By: Reyna Daly Admission Data Admit Date/Time: 12/31/22 09:50 Attending Provider: Vladimir Montoya Admit Provider: Vladimir Montoya Primary Care Provider: Kelli Gray Other Providers: To Cheek ; Apolinar Barajas ; Syd Condon ; Devon Tirado ; Jonathan Seth ; Jm Fay Muqueet ; Jani Cruz ; Anna Yates ; Angle Green Other Interventions: Discharge Summary Assessment (RN) Last Done: 01/01/23 12:11
== END 2023-01-01 15:01 | disposition home or self-care (01) | DRG 38 ==
LOC: ASU 07:08 → 1E 09:50

== ENCOUNTER 2024-08-31 10:24 | Observation (INO) ==
--- NOTE | 2024-08-06 09:24 | PAT Medication Instructions ---
Medication Instructions Date of Service August 06, 2024 Home Medications Medication Instructions Recorded calcium 600 mg (as 1 cap PO BID #180 caps 11/16/20 carbonate)-vitamin D3 5 mcg (200 unit) capsule (Calcium 600 + D(3)) mometasone 50 mcg/actuation nasal 2 spray intranasal DAILY PRN nasal 11/24/20 spray congestion #51 grams albuterol sulfate 90 mcg/actuation 2 puff inhalation QID PRN SOB 90 12/18/21 aerosol inhaler days #25.5 grams nitroglycerin 0.3 mg sublingual 0.3 mg sublingual Q5M PRN chest 12/25/21 tablet pain #100 tabs diclofenac sodium 75 mg 75 mg PO BID PRN pain #60 tabs 01/25/22 tablet,delayed release azelastine 137 mcg (0.1 %) nasal 2 spray intranasal BID PRN nasal 11/13/22 spray congestion #30 mL aspirin 325 mg tablet,delayed 325 mg PO QAM #30 tabs 07/11/23 release budesonide-formoterol HFA 80 2 puff inhalation BID 90 days 09/25/23 mcg-4.5 mcg/actuation aerosol #30.6 grams inhaler (Symbicort) metformin 500 mg tablet 500 mg PO BID #180 tabs 09/25/23 duloxetine 20 mg capsule,delayed 20 mg PO BID #180 caps 09/26/23 release fluticasone propionate 50 2 spray intranasal DAILY #48 grams 09/26/23 mcg/actuation nasal spray,suspension amlodipine 5 mg tablet (Norvasc) 5 mg PO QAM #90 tabs 06/21/24 atorvastatin 40 mg tablet 40 mg PO HS #90 tabs 06/21/24 carvedilol 6.25 mg tablet 6.25 mg PO BID #180 tabs 06/21/24 clopidogrel 75 mg tablet 75 mg PO DAILY #90 tabs 06/21/24 ezetimibe 10 mg tablet 10 mg PO QAM #90 tabs 06/21/24 hydrochlorothiazide 12.5 mg tablet 12.5 mg PO QAM #90 tabs 06/21/24 lisinopril 20 mg tablet 20 mg PO QAM #90 tabs 06/21/24 omeprazole 20 mg capsule,delayed 20 mg PO QAM #90 caps 06/21/24 release calcium 600 mg (as carbonate)-vitamin D3 5 mcg (200 unit) capsule (Calcium 600 + D(3)) 1 cap PO BID mometasone 50 mcg/actuation nasal spray 2 spray intranasal DAILY PRN albuterol sulfate 90 mcg/actuation aerosol inhaler 2 puff inhalation QID PRN nitroglycerin 0.3 mg sublingual tablet 0.3 mg sublingual Q5M PRN diclofenac sodium 75 mg tablet,delayed release 75 mg PO BID PRN prenat.vits,mildred,orv-lvie-pwugo 1 tab PO DAILY azelastine 137 mcg (0.1 %) nasal spray 2 spray intranasal BID PRN aspirin 325 mg tablet,delayed release 325 mg PO QAM budesonide-formoterol HFA 80 mcg-4.5 mcg/actuation aerosol inhaler (Symbicort) 2 puff inhalation BID metformin 500 mg tablet 500 mg PO BID duloxetine 20 mg capsule,delayed release 20 mg PO BID fluticasone propionate 50 mcg/actuation nasal spray,suspension 2 spray intranasal DAILY amlodipine 5 mg tablet (Norvasc) 5 mg PO QAM atorvastatin 40 mg tablet 40 mg PO HS carvedilol 6.25 mg tablet 6.25 mg PO BID clopidogrel 75 mg tablet 75 mg PO DAILY ezetimibe 10 mg tablet 10 mg PO QAM hydrochlorothiazide 12.5 mg tablet 12.5 mg PO QAM lisinopril 20 mg tablet 20 mg PO QAM omeprazole 20 mg capsule,delayed release 20 mg PO QAM Continue as directed mometasone 50 mcg/actuation nasal spray 2 spray intranasal DAILY PRN(if needed) nitroglycerin 0.3 mg sublingual tablet 0.3 mg sublingual Q5M PRN(if needed) fluticasone propionate 50 mcg/actuation nasal spray,suspension 2 spray intranasal DAILY ASK your surgeon for instructions diclofenac sodium 75 mg tablet,delayed release 75 mg PO BID PRN ASK your prescriber and surgeon aspirin 325 mg tablet,delayed release 325 mg PO QAM clopidogrel 75 mg tablet 75 mg PO DAILY(in order for spinal or epidural anesthesia, clopidogrel (Plavix) needs to be stopped 7 days before surgery. Please check if okay with doctor that prescribes this to you) DO NOT take the morning of surgery calcium 600 mg (as carbonate)-vitamin D3 5 mcg (200 unit) capsule (Calcium 600 + D(3)) 1 cap PO BID prenat.vits,mildred,vne-lfij-ggsrm 1 tab PO DAILY metformin 500 mg tablet 500 mg PO BID hydrochlorothiazide 12.5 mg tablet 12.5 mg PO QAM lisinopril 20 mg tablet 20 mg PO QAM Take morning of surgery With a small sip of water, OTHERWISE NOTHING TO EAT OR DRINK AFTER MIDNIGHT: albuterol sulfate 90 mcg/actuation aerosol inhaler 2 puff inhalation QID PRN(use if needed; please bring with you to hospital day of surgery if possible) azelastine 137 mcg (0.1 %) nasal spray 2 spray intranasal BID PRN(if needed) budesonide-formoterol HFA 80 mcg-4.5 mcg/actuation aerosol inhaler (Symbicort) 2 puff inhalation BID duloxetine 20 mg capsule,delayed release 20 mg PO BID amlodipine 5 mg tablet (Norvasc) 5 mg PO QAM carvedilol 6.25 mg tablet 6.25 mg PO BID ezetimibe 10 mg tablet 10 mg PO QAM omeprazole 20 mg capsule,delayed release 20 mg PO QAM Take evening before surgery calcium 600 mg (as carbonate)-vitamin D3 5 mcg (200 unit) capsule (Calcium 600 + D(3)) 1 cap PO BID albuterol sulfate 90 mcg/actuation aerosol inhaler 2 puff inhalation QID PRN(if needed) azelastine 137 mcg (0.1 %) nasal spray 2 spray intranasal BID PRN(if needed) budesonide-formoterol HFA 80 mcg-4.5 mcg/actuation aerosol inhaler (Symbicort) 2 puff inhalation BID metformin 500 mg tablet 500 mg PO BID duloxetine 20 mg capsule,delayed release 20 mg PO BID atorvastatin 40 mg tablet 40 mg PO HS carvedilol 6.25 mg tablet 6.25 mg PO BID Other Notes If you have any questions please call us at [phone] or [phone] or [phone] or [phone]
--- NOTE | 2024-08-09 10:19 | Anesthesiology Consultation ---
Date of Service August 09, 2024 Assessment & Plan (1) Encounter for pre-operative examination: - Check BSG DOS - Infectious disease screening: Per assessment on 08/09/24- No known recent infectious disease contacts or current infectious disease symptoms. - Outpatient joint assessment: Pt currently scheduled for inpatient pathway. If surgeon requests review for outpatient joint pathway, patient is not recommended candidate for outpatient joint program from anesthesia standpoint based on available information. - Plavix instructions: patient made aware that for neuraxial anesthesia, Plavix needs to be held 7 days prior to surgery. Patient voiced understanding/will check if okay with prescriber. - Allergy visit (11/17/23): Following for hx chronic rhinitis, recurrent pneumonia (no recent/current issues), asthma, nickel allergy, allergic contact dermatitis. Labs ordered and one year follow-up recommended. - PCP visit (07/15/24): "Status post carotid endarterectomy.. stable... HTN (hypertension).. controlled. Encouraged a low Na+ diet. Continue with current management and monitoring.. Hyperlipidemia.. controlled. Continue with current management and monitoring.. CAD (coronary artery disease).. stable. continue to f/u with cardio.. Stroke.. 2014. no deficits. stable.Continue with current management and monitoring.. Chronic obstructive pulmonary disease.. stable/controlled. Continue with current management and monitoring.. RTO in 6 months or prior prn." - Case reviewed with Dr. Singh. He feels patient okay to proceed as scheduled without additional preoperative evaluations/clearances from his perspective. Patient acceptable risk for surgery pending evaluation DOS. Chart Review Chart Review: Patient seen in Pre Admission Testing Teaching & Discussion Pre-Anesthesia Teaching/Discussion Notes: Instructed NPO after midnight before surgery,except medications with 15 cc of water. Medication instructions provided according to the PAT guidelines. History Surgery Operation Date: 08/31/24 07:00 Proposed Procedures p Left Total Knee Arthroplasty - Kyle Dominguez MD Height/Weight Height: 5 ft 2 in Weight: 72.2 kg Allergies Allergy/AdvReac Type Severity Reaction Status Date / Time nickel Allergy Intermediate Blisters Verified 08/06/24 10:18 No Known Drug Allergies Allergy NKDA Verified 08/05/24 14:26 Medications Home Medications Medication Instructions Recorded Confirmed Last Taken calcium 600 mg (as 1 cap PO BID #180 caps 0608/05/24 12/30/22 08:00 carbonate)-vitamin D3 5 mcg (200 unit) capsule (Calcium 600 + D(3)) mometasone 50 mcg/actuation nasal 2 spray intranasal DAILY PRN nasal 11/24/20 08/05/24 09/24/22 spray congestion #51 grams albuterol sulfate 90 mcg/actuation 2 puff inhalation QID PRN SOB 90 12/18/21 08/05/24 09/25/22 aerosol inhaler days #25.5 grams nitroglycerin 0.3 mg sublingual 0.3 mg sublingual Q5M PRN chest 12/25/21 08/05/24 Unknown tablet pain #100 tabs diclofenac sodium 75 mg 75 mg PO BID PRN pain #60 tabs 01/25/22 08/05/24 12/30/22 08:00 tablet,delayed release prenat.vits,mildred,[id number] 1 tab PO DAILY 11/08/22 08/05/24 12/30/22 08:00 azelastine 137 mcg (0.1 %) nasal 2 spray intranasal BID PRN nasal 11/13/22 08/05/24 Unknown spray congestion #30 mL aspirin 325 mg tablet,delayed 325 mg PO QAM #30 tabs 07/11/23 08/05/24 Unknown release budesonide-formoterol HFA 80 2 puff inhalation BID 90 days 09/25/23 08/05/24 Unknown mcg-4.5 mcg/actuation aerosol #30.6 grams inhaler (Symbicort) metformin 500 mg tablet 500 mg PO BID #180 tabs 09/25/23 08/05/24 Unknown duloxetine 20 mg capsule,delayed 20 mg PO BID #180 caps 09/26/23 08/05/24 Unknown release fluticasone propionate 50 2 spray intranasal DAILY #48 grams 09/26/23 08/05/24 Unknown mcg/actuation nasal spray,suspension amlodipine 5 mg tablet (Norvasc) 5 mg PO QAM #90 tabs 06/21/24 08/05/24 Unknown atorvastatin 40 mg tablet 40 mg PO HS #90 tabs 06/21/24 08/05/24 Unknown carvedilol 6.25 mg tablet 6.25 mg PO BID #180 tabs 06/21/24 08/05/24 Unknown clopidogrel 75 mg tablet 75 mg PO DAILY #90 tabs 06/21/24 08/05/24 Unknown ezetimibe 10 mg tablet 10 mg PO QAM #90 tabs 06/21/24 08/05/24 Unknown hydrochlorothiazide 12.5 mg tablet 12.5 mg PO QAM #90 tabs 06/21/24 08/05/24 Unknown lisinopril 20 mg tablet 20 mg PO QAM #90 tabs 06/21/24 08/05/24 Unknown omeprazole 20 mg capsule,delayed 20 mg PO QAM #90 caps 06/21/24 08/05/24 Unknown release Past Medical History Medical History Anxiety and depression Bradycardia CAD (coronary artery disease) "Very mild" non-occlusive CAD on 2012 per records Cerebral calcification Cervical spinal stenosis Chronic back pain Chronic cough Chronic rhinitis COPD (chronic obstructive pulmonary disease) Degenerative disc disease Depression GERD (gastroesophageal reflux disease) History of CHF (congestive heart failure) Follows with [facility] History of COVID-19 (2019) Symptoms resolved History of stroke 2013, no deficits HLD (hyperlipidemia) HTN (hypertension) Legally blind Mass of cavity of nose Noted on remote CTS. Seen by [facility] otolaryngology 03/2023. No nasal masses noted on exam. Biopsy of bilateral inferior turbinates and reduction of the bilateral inferior turbinates WNL. F/U PRN. Mild persistent asthma Osteoarthritis Prediabetes "Takes metformin for weight loss" per patient Stenosis of right internal carotid artery s/p right carotid endarterectomy (2022) Residual numbness surrounding surgical incision site since surgery per patient, unchanged/at baseline Follows with [facility] vascular Exercise / Class Metabolic Activity II 4-5 Yardwork/Stairs/Walk up hill (one FS: No CP, no SOB) Past Family History Family History Brother Family hx of colon cancer Diabetes Myocardial infarction Hypertension Father Family hx of colon cancer, Onset Age: 80 Myocardial infarction Hypertension Sister Diabetes Myocardial infarction Hypertension Other Colorectal cancer Denies family history of Ovarian cancer Prostate cancer Breast cancer Past Surgical History Surgical History History of breast biopsy Left ("negative") History of cardiac cath 2012 - no stents History of cataract surgery R/L History of section X3 History of colonoscopy History of laminectomy History of lumbar laminectomy for spinal cord decompression History of surgery on wrist History of tooth extraction S/P carotid endarterectomy (2022) Right: Grade 2 view, MAC#3, ETT 7.0 at [facility] Past Anesthesia History No Hx of Anesthesia Complications and No Family Hx of Anesthesia Complications History of PONV No Hx of PONV and No Hx of Motion Sickness Social History Smoking Status: Former smoker tobacco type: cigarettes Do You Dip or Chew Tobacco: No Smoking End Date: Quit 2003 (hx 16-20 cigs/day) Hx Alcohol Use: Yes Alcohol type: wine and hard liquor alcohol intake frequency: holidays/special occasions only Hx Substance Use: No substance use type: does not use Review of Systems Patient denies chest pain, shortness of breath, dyspnea on exertion, fever, chills, cough, wheezing, palpitations. Physical Exam Vital Signs BP 146/88 P 56 TEMP 98.3 SP02 96%RA RESP 18 Physical Full cervical extension range of motion. Full TMJ range of motion. TMD 3 finger breaths Mallampati Score III Dentition: "broken" lower molars Lungs: clear throughout to auscultation Cardiac: regular rate and rhythm, no murmurs noted Spine: normal Carotid arteries: negative bruit Extremities: no LE edema Lab Results Anesthesia Preop Results Results Anesthesia Widget: WBC 6.23 K/ul (4.8-10.8) 08/09/24 Hgb 14.0 g/dl (12.0-16.0) 08/09/24 Hct 42.3 % (37.0-47.0) 08/09/24 Plt 152 K/uL (130-400) 08/09/24 Na 141 mmol/L (136-145) 08/09/24 K 4.2 mmol/L (3.5-5.1) 08/09/24 Cl 103 mmol/L (98-107) 08/09/24 CO2 34 mmol/L (21-32) H 08/09/24 BUN 25 mg/dl (6-23) H 08/09/24 Creat 0.70 mg/dl (0.6-1.2) 08/09/24 Glucose Level 103 mg/dl (70-99(Fasting)) H 08/09/24 PT 10.3 Seconds (9.0-12.0) 08/09/24 PTT 25 Seconds (21-31) 08/09/24 INR 0.9 (0.9-1.1) 08/09/24 HA1c 5.8 % (4.5-5.6) H 08/09/24 Blood Type A Positive 08/09/24 Antibody Screen NEGATIVE 08/09/24 Testing Electrocardiogram Date: 08/09/24 SB at 55bpm. NS STA. No significant change compared to 01/28/2023 per management engineer comparison. Chest X-Ray Date: 08/09/24 FINDINGS: Heart size and pulmonary vasculature are normal. No effusion or consolidation. IMPRESSION: No acute findings. Echocardiogram Date: 10/30/22 EF 65%. No RWMA. Mild cLVH. Probably type 2 diastolic function with indeterminate left atrial pressure. Modate LAD. Mild RAD. Trace to mild TR. Stress Test Date: 01/03/21 Type: exercise No evidence of major myocardial ischemia at faitiguing workload at 79% MPHR. Nondiagnostic stress echo d/t failure to achieve target heart rate. Abnormal ECG response to exercise treadmill test. Very poor exercise tolerance. 4.6 METS. Rest echo with normal systolic function and no significant valvular disease. EF 60%. Other Testing CT sinus Date: 10/15/22 Soft tissue lesions extend posterior to bilateral inferior turbinates into nasopharynx bilaterally, unchanged compared with 03/[address] Left sphenoid sinus air-fluid level/frothy mucus may indicate acute sinusitis. All paranasal sinus outflow tracts are patent, but narrowed (see above). > 5 mm right maxillary sinus mucosal thickening. Trace (< 3 mm) right frontal sinus, bilateral ethmoid air cell, left maxillary sinus, and left sphenoid sinus mucosal thickening. Hypoplastic left frontal sinus. Mild left olfactory recess opacification, without expansion. Scattered brain parenchymal calcifications; anterior calcifications are stable compared with 03/[address] Neck CTA Date: 01/28/23 IMPRESSION: 1. No occlusion, hemodynamically significant stenosis, or dissection in the major cervical arteries. Postsurgical changes are seen as above. 2. No occlusion, hemodynamically significant stenosis, aneurysm, dissection, or arteriovenous malformation in the major intracranial arteries.
--- NOTE | 2024-08-27 17:53 | History & Physical Report ---
Date of Service August 27, 2024 Assessment & Plan (1) Left knee DJD: 64-year-old female with with advanced left knee DJD. She has failed conservative measures. She would like to have her left knee fixed. Plan: Venkata taken to the operating room do a left total knee replacement. The risks met this procedure explained. Informed consent was obtained. Should take her carvedilol the morning of surgery. Hold the Plavix 7 days preop. Hold lisinopril the morning of surgery along with metformin. She can take omeprazole. She is planned be discharged to home with her daughter's assistance. Will use Plavix, teds, SCDs for DVT prophylaxis. (2) CAD (coronary artery disease): (3) GERD (gastroesophageal reflux disease): (4) Hyperlipidemia: (5) Chronic obstructive pulmonary disease: (6) HTN (hypertension): History of Present Illness Chief Complaint: . Persistent and progressive left knee pain and discomfort. Primary Care Provider: Kelli Gray MD . The patient is a 64-year-old female who works as a infusion therapy nurse at the [employer] who presents for treatment of her left knee. Got a long history of left knee pain discomfort describes gotten worse over time. She has been through extensive conservative measures including steroid shots and viscosupplementation which become less successful over time. Pains become more debilitating she is having difficulty doing her job. She would like to have her knee fixed. Allergies Allergy/AdvReac Type Severity Reaction Status Date / Time nickel Allergy Intermediate Blisters Verified 08/06/24 10:18 No Known Drug Allergies Allergy NKDA Verified 08/05/24 14:26 Home Medications Medication Instructions Recorded Confirmed Type calcium 600 mg (as 1 cap PO BID #180 caps 11/16/20 08/05/24 Rx carbonate)-vitamin D3 5 mcg (200 unit) capsule (Calcium 600 + D(3)) mometasone 50 mcg/actuation nasal 2 spray intranasal DAILY PRN nasal 11/24/20 08/05/24 Rx spray congestion #51 grams albuterol sulfate 90 mcg/actuation 2 puff inhalation QID PRN SOB 90 12/18/21 08/05/24 Rx aerosol inhaler days #25.5 grams nitroglycerin 0.3 mg sublingual 0.3 mg sublingual Q5M PRN chest 12/25/21 08/05/24 Rx tablet pain #100 tabs diclofenac sodium 75 mg 75 mg PO BID PRN pain #60 tabs 01/25/22 08/05/24 Rx tablet,delayed release prenat.vits,mildred,[id number] 1 tab PO DAILY 11/08/22 08/05/24 History azelastine 137 mcg (0.1 %) nasal 2 spray intranasal BID PRN nasal 11/13/22 08/05/24 Rx spray congestion #30 mL aspirin 325 mg tablet,delayed 325 mg PO QAM #30 tabs 07/11/23 08/05/24 Rx release budesonide-formoterol HFA 80 2 puff inhalation BID 90 days 09/25/23 08/05/24 Rx mcg-4.5 mcg/actuation aerosol #30.6 grams inhaler (Symbicort) metformin 500 mg tablet 500 mg PO BID #180 tabs 09/25/23 08/05/24 Rx duloxetine 20 mg capsule,delayed 20 mg PO BID #180 caps 09/26/23 08/05/24 Rx release fluticasone propionate 50 2 spray intranasal DAILY #48 grams 09/26/23 08/05/24 Rx mcg/actuation nasal spray,suspension amlodipine 5 mg tablet (Norvasc) 5 mg PO QAM #90 tabs 06/21/24 08/05/24 Rx atorvastatin 40 mg tablet 40 mg PO HS #90 tabs 06/21/24 08/05/24 Rx carvedilol 6.25 mg tablet 6.25 mg PO BID #180 tabs 06/21/24 08/05/24 Rx clopidogrel 75 mg tablet 75 mg PO DAILY #90 tabs 06/21/24 08/05/24 Rx ezetimibe 10 mg tablet 10 mg PO QAM #90 tabs 06/21/24 08/05/24 Rx hydrochlorothiazide 12.5 mg tablet 12.5 mg PO QAM #90 tabs 06/21/24 08/05/24 Rx lisinopril 20 mg tablet 20 mg PO QAM #90 tabs 06/21/24 08/05/24 Rx omeprazole 20 mg capsule,delayed 20 mg PO QAM #90 caps 06/21/24 08/05/24 Rx release Past Med/Surg History Problem List Trigger finger, right ring finger Mild persistent asthma Cerebral calcification Chronic rhinitis Allergic contact dermatitis Nickel allergy Bradycardia Mass of cavity of nose Encounter for pre-operative examination Impaired fasting glucose Left knee DJD Vitamin D deficiency Anxiety and depression CAD (coronary artery disease) GERD (gastroesophageal reflux disease) Hyperlipidemia Chronic obstructive pulmonary disease HTN (hypertension) Medical History HTN (hypertension) COPD (chronic obstructive pulmonary disease) HLD (hyperlipidemia) History of stroke 2013, no deficits GERD (gastroesophageal reflux disease) CAD (coronary artery disease) "Very mild" non-occlusive CAD on 2012 per records Anxiety and depression Bradycardia Chronic rhinitis Cerebral calcification Mild persistent asthma History of COVID-19 (2019) Symptoms resolved Cervical spinal stenosis Mass of cavity of nose Noted on remote CTS. Seen by [facility] otolaryngology 03/2023. No nasal masses noted on exam. Biopsy of bilateral inferior turbinates and reduction of the bilateral inferior turbinates WNL. F/U PRN. Stenosis of right internal carotid artery s/p right carotid endarterectomy (2022) Residual numbness surrounding surgical incision site since surgery per patient, unchanged/at baseline Follows with [facility] vascular Chronic cough Legally blind Prediabetes "Takes metformin for weight loss" per patient History of CHF (congestive heart failure) Follows with [facility] Osteoarthritis Degenerative disc disease Chronic back pain Depression Surgical History S/P carotid endarterectomy (2022) Right: Grade 2 view, MAC#3, ETT 7.0 at [facility] History of surgery on wrist History of lumbar laminectomy for spinal cord decompression History of laminectomy History of cardiac cath 2012 - no stents History of breast biopsy Left ("negative") History of section X3 History of colonoscopy History of tooth extraction History of cataract surgery R/L Family History Brother Family hx of colon cancer Diabetes Myocardial infarction Hypertension Father Family hx of colon cancer, Onset Age: 80 Myocardial infarction Hypertension Sister Diabetes Myocardial infarction Hypertension Other Colorectal cancer Denies family history of Ovarian cancer Prostate cancer Breast cancer Social History Smoking Status: Former smoker Tobacco Type: Cigarettes Age Started Using Tobacco: 10; Age Quit Using Tobacco: 51; packs per day: 1; Smoking End Date: Quit 2003 (hx 16-20 cigs/day); Second Hand Exposure: No; Do You Dip or Chew Tobacco: No; Tobacco Cessation Education Requested by Patient: No Hx Alcohol Use: Yes Alcohol type: wine and hard liquor Alcohol Intake Frequency: Monthly or Less Hx Substance Use: No Preferred Language: [place] Communication Ability: Effective Visual Impairment: No Limitations Hearing Ability: Normal Security Field Supervisor Required: No Beliefs That Will Affect Care: None marital status: Single Current Living Situation: Alone current occupational status: employed current occupation: [employer] How many Children do You have: 5 Other Information That Helps Us Care for You: No Feels Safe at Home: Yes Safety Concerns: Feels Safe At This Time Childhood Exposure to Second-Hand Smoke: Yes (Father smoked. ) Diet: regular caffeine: Yes (coffee) during the past year weight has: remained stable Dental Care, Regularly: No Physical Activity Frequency: 1-2 Times per Week Physical Activity Frequency Comment: Walking Seatbelt Use: always Sunscreen Use: No Do you think of yourself as: straight/heterosexual Sexual Activity: has been sexually active, but not for at least 12 months Gender Identity: Female Assistive Devices: None Review of Systems All systems reviewed & are unremarkable except as noted in HPI & below. Physical Exam . Physical examination reveals a pleasant middle-age female. Looks to be in pretty good health. Examination of the left knee reveal patient walks with slightly antalgic gait. Varus alignment to her knee. Tender over the medial joint line. Small knee effusion. Range of motion 5-1 20. No instability. No particular pain with hip motion. Constitutional WD/WN, vitals as above Neck trachea midline, no thyromegaly Respiratory normal respiratory effort, lungs clear to auscultation Cardiovascular RRR, no murmur, no edema Gastrointestinal (Abdomen) normal bowel sounds, soft, nontender, no hepatosplenomegaly Results & Data Results & Data Laboratory Results . Diagnostic Findings . X-rays left knee reviewed. Shows advanced left knee DJD. She got complete loss of medial joint space prescribed subchondral sclerosis. Osteophytes primarily medially. PG Care Time/CCT Total # of Minutes Spent Total Time Spent with Patient: Total time spent is greater than 50% in coordination of care (as documented) at patient's floor/unit and/or counseling patient: Coding Level of Care Code None Diagnoses Left knee DJD M17.12 Coronary artery disease involving [place] coronary artery of [place] heart without angina pectoris I25.10 Coronary Disease-Associated Artery/Lesion type: [place] artery [place] vs. transplanted heart: [place] heart Associated angina: without angina Gastroesophageal reflux disease without esophagitis K21.9 Esophagitis presence: without esophagitis Mixed hyperlipidemia E78.2 Hyperlipidemia type: mixed hyperlipidemia Chronic bronchitis, unspecified chronic bronchitis type J42 COPD type: chronic bronchitis Chronic bronchitis type: unspecified Primary hypertension I10 Hypertension type: primary hypertension (2) CAD (coronary artery disease) Coronary Disease-Associated Artery/Lesion type: [place] artery [place] vs. transplanted heart: [place] heart Associated angina: without angina Qualified Code(s): I25.10 - Atherosclerotic heart disease of [place] coronary artery without angina pectoris (3) GERD (gastroesophageal reflux disease) Esophagitis presence: without esophagitis Qualified Code(s): K21.9 - Gastro- esophageal reflux disease without esophagitis (4) Hyperlipidemia Hyperlipidemia type: mixed hyperlipidemia Qualified Code(s): E78.2 - Mixed hyperlipidemia (5) Chronic obstructive pulmonary disease COPD type: chronic bronchitis Chronic bronchitis type: unspecified Qualified Code(s): J42 - Unspecified chronic bronchitis (6) HTN (hypertension) Hypertension type: primary hypertension Qualified Code(s): I10 - Essential (primary) hypertension
[~2024-08-31 10:24] MED LIST changes: +BUPIVACAINE 0.25% PF 30 ML VIAL ONE; +BUPIVACAINE 0.5 % 5 MG/1 ML PF 10ML VIAL ONE; -CEFAZOLIN 2,000 MG/15 ML SYR IV SCH; -LACTATED RINGER'S 1,000 ML BAG IV SCH; -SODIUM CHLORIDE 0.9% 1000ML 1,000 ML IV SCH
[2024-08-31] MEDS ORDERED: ePHEDrine sulfate 50 MG/ML AMP IV PRN (10:41)
[2024-08-31] MEDS ORDERED: HYDROmorphone INJ 2 MG/ML SYR/VIAL IV PRN (10:41)
[2024-08-31] MEDS ORDERED: PROMETHAZINE HCL 6.25 MG in SODIUM CHLORIDE 0.9% 50 ML IV PRN (10:41)
[2024-08-31] MEDS ORDERED: ONDANSETRON INJ 2 MG/ML 2 ML VIAL IV PRN ×2 (10:41→15:49)
[2024-08-31] MEDS ORDERED: fentaNYL citrate PF 100 MCG/2 ML VIAL IV PRN (10:41)
[2024-08-31] MEDS ORDERED: ATROPINE SULFATE 0.1 MG/ML 10ML SYR IV PRN (10:41)
[2024-08-31] MEDS: LR 500ML BOLUS, THEN 15ML/HR IV SCH (11:02)
[2024-08-31] MEDS: CeleBREX 200 MG CAP PO SCH (11:02)
[2024-08-31] MEDS: FAMOTIDINE 20 MG TAB PO SCH (11:02)
[2024-08-31] MEDS: dexAMETHasone**PF** 10 MG/ML VIAL IV SCH (11:03)
[2024-08-31] MEDS: LR 60ML/HR IV SCH (11:03)
[2024-08-31] MEDS: METOCLOPRAMIDE HCL 10 MG TABLET PO SCH (11:03)
[2024-08-31] MEDS: ACETAMINOPHEN 500 MG TAB PO SCH ×2 (11:03→21:16)
[2024-08-31] MEDS ORDERED: MIDAZOLAM HCL 1 MG/ML 2ML VIAL ONE (11:30)
[2024-08-31] MEDS ORDERED: PROPOFOL IV EMULSION 10 MG/ML 100 ML VIAL IV ONE (11:58)
[2024-08-31] MEDS ORDERED: ONDANSETRON INJ 2 MG/ML 2 ML VIAL ONE (11:59)
[2024-08-31] MEDS ORDERED: LIDOCAINE 2% 2 ML VIAL/AMP(20MG/ML) INFIL ONE (11:59)
--- NOTE | 2024-08-31 12:13 | History & Physical Bridge Note ---
Date of Service August 31, 2024 History & Physical Bridge Note I have examined the patient, reviewed the History & Physical and in the interval since the performance of the History & Physical I have noted the following changes of clinical significance: no changes noted
[2024-08-31] MEDS: ceFAZolin 2000MG 2,000 MG/15 ML SYR IV SCH (12:42)
[2024-08-31] MEDS ORDERED: KETAMINE HCL 10MG/ML SYR ONE (12:51)
[2024-08-31] MEDS: ROPIV 0.5% 246mg, Ketorolac 30mg, EPINEPHrine 0.5mg in NSS INFIL SCH (13:29)
[2024-08-31] MEDS: ORTHO JOINT ANESTHETIC ONE (13:31)
[2024-08-31] MEDS: TRANEXAMIC ACID 1,000 MG **IV Intra-op IV SCH (13:41)
--- NOTE | 2024-08-31 14:35 | Operative Report ---
PG Post Operative Report Pre & Post Diagnosis Operation Date: 08/31/24 12:30 Pre-Op Diagnosis: Left Knee Osteoarthritis Post-Op Diagnosis: Left Knee Osteoarthritis I identified the patient and participated in the time-out.: Yes Procedure Operation Date: 08/31/24 12:30 Actual Procedures p Left Total Knee Arthroplasty(Left) - Kyle Dominguez MD Surgeon Kyle Dominguez MD Airbrush Artist EULALIA Hidalgo Estimated Blood Loss 50 Findings Consistent with Post-Op Diagnosis Specimens Left knee sent for pathology. Anesthesia Type Spinal MAC Complications none Disposition Accompanied Patient To Recovery: No Indications Patient is a 64-year-old female is had a several year history of increasing left knee pain discomfort described to gotten worse over time. She failed conservative measures. X-rays show advanced medial compartment arthritis. She elected proceed with surgical management. The patient has an apparent nickel allergy so we used the [employer]hew zirconium total knee arthroplasty system. Description of Procedure Operative implants consists of: 1. Ferr[employer] Nephew journey 2 size 4 left posterior Byce femoral component. 2. Ferr[employer] Nephew journey 2 size 3 left tibial tray. 3. 10 mm posterior stabilized polyethylene insert. 4. 32 x 9 all poly patella. The patient was taken to the op room, identified, placed on the operating table in the supine position. All conductors were appropriately padded. IV antibiotics fibra anesthesia team. A spinal anesthetic and adductor canal block had been We[place] in the holding area. A Elmore catheter was placed in sterile fashion for the left side turn was then placed in the left lower extremity was then prepped and draped in usual sterile fashion. The left leg was elevated and exsanguinated with use of an Esmarch and a turn wa s placed at 300 mmHg. An anterior approach to the left knee was then performed to longitudinal incision centered over the patella. Sharp dissection Through subcutaneous tissue down the extensor mechanism. A medial parapatellar arthrotomy incision was made. Some subperiosteal dissection carried out medially. The fat pad was resected from Neath patella tendon. The lateral patellofemoral ligament was released. Patella subluxate laterally knee was flexed. The osteophytes taken on distal femur. The ACL and PCL released from the distal femur and the tibia subluxate anteriorly. The external tibial alignment jig was then placed on the interface the tibia and adjusted 8 mm medially. The proximal tibial cut was made remove about 2 mm of bone from the medial side. The tibia was sized to a size 3. Attention drawn the femur. The distal femur termed a sharp drill. Intramedullary canal was suction. A left 5 degree valgus cutting guide was placed. Distal femoral cutting block was pinned in place. The distal femoral cutting block was adjusted to take an additional 2 mm of bone off distal femur. The distal femur cut was made. The femoral sizing guide was then attached to the distal femur. This femur sized to exactly a size 4. The AP cutting block holes were then drilled parallel to the epicondylar axis which was 4 degrees of external rotation. The anterior cord, anterior cut, posterior cut, posterior chamfer cuts, anterior chamfer cuts were made. The remnants of the medial lateral menisci were excised. The osteophytes taken off the posterior aspect of the femur. The femoral component was placed. The milling device was used to create the box for the femoral component. The trochlea was placed. The tibia was subluxated anteriorly. The tibial tray was pinned in Serene external rotation. The drill and stem punch use great defect in proximal tibia for the tibial tray. Knee was then trialed and 10 mm insert fit most appropriately. Attention drawn the patella. The patellar was cleaned of all soft tissues. Patella thickness measured 23 mm in thickness was cut down to 14. Was sized to a size 32 patella. The lug holes were drilled for 32 patella. The lateral osteophytes removed. Patella was placed. Knee was taken through range of motion patella tracked nicely with no thumbs test. Attention then drawn to place the permanent components. All trial components were removed. Bone plug was placed in the distal femur limit blood loss. A double batch of [place]os G cement was mixed. A Ferraro [employer] Nephew size 4 posterior Byce femoral component, size 3 tibial tray, a 10 mm posterior Byce polyethylene insert, and a 32 x 9 all poly patella then cemented in place. The knee was brought out into full extension till cement hardened. Final symmetric exam performed. The pericapsular tissues were injected with total of 100 cc of Ortho mix. The patient did receive 1 g tranexamic acid. The tourniquet was then let down for final turn time 56 minutes. Hemostasis surges electrocautery. Extensor Meclomen closed with combination 1 PDS suture normal Vicryl suture in [id number] fashion. Extensor Meclomen checked found to be intact the subcutaneous tissue then closed with 2 Dexon suture in buried interrupted fashion skin was closed skin cammie. Leg was then cleaned and dried and a sterile dressing with Xeroform, 4 fours, sterile ABD pad, sterile cast padding, Alan bandage were applied. Patient then transferred to the recovery in stable condition. Patient tolerated procedure well and there were no complications. Shane Hidalgo, my physician emergency room physician assistant, was present for the entire procedure. His assistance was essential and required for appropriate patient positioning, prepping and draping, surgical exposure, performing the technical details of the operation, placement the implants, closure of the wound, and placement of the sterile bandage. I attest to the content of the Intraoperative Record and any orders documented therein. Any exceptions are noted below.
--- NOTE | 2024-08-31 15:05 | XRay Report ---
XR knee LT 1 or 2V routine CLINICAL HISTORY: Surgical Post Op COMPARISON: None FINDINGS: Right knee prosthesis shows no hardware complication. There is expected soft tissue gas. S kin cammie are present. IMPRESSION: Unremarkable postoperative exam. ACT 112: Negative or not required by law. Electronically signed by: Nasir Oneil M.D. 08/31/2024 3:03 PM
--- NOTE | 2024-08-31 15:07 | Anesthesiology Progress Note ---
Date of Service August 31, 2024 Anesthesia Post Procedure Vital Signs Vital Signs: Temp Pulse Pulse Resp BP Pulse Ox O2 Del Method 08/31/24 15:00 58 L 14 147/89 H 94 Room Air 08/31/24 14:50 56 L 12 151/96 H 98 Oxymask 08/31/24 14:40 58 L 14 152/80 H 100 Oxymask 08/31/24 14:30 53 L 14 148/80 H 99 Oxymask 08/31/24 14:22 36.1 C L 67 16 137/76 97 Oxymask 08/31/24 11:09 Room Air 08/31/24 10:40 36.8 C 58 L 20 174/107 H 96 Room Air O2 Flow Rate 08/31/24 15:00 08/31/24 14:50 2 08/31/24 14:40 2 08/31/24 14:30 4 08/31/24 14:22 8 08/31/24 11:09 08/31/24 10:40 Transfer of Care Handoff Completed per policy Notes Mental Status: alert / awake / arousable Patient Amnestic to Procedure: Yes Nausea / Vomiting: adequately controlled Pain: adequately controlled Airway Patency, RR, SpO2: stable & adequate BP & HR: stable & adequate Hydration State: stable & adequate Anesthetic Complications: no major complications apparent and Pt Satisfied with anesthetic care
[2024-08-31] MEDS ORDERED: METOCLOPRAMIDE HCL INJ 5 MG/ML 2 ML VIAL IV PRN (15:49)
[2024-08-31] MEDS ORDERED: AZELASTINE HCL 0.1% NASAL 200 SPRAYS/27,400 MCG BTL NAE PRN (15:49)
[2024-08-31] MEDS ORDERED: DEXTROSE 50% 50 ML SYRINGE IV PRN (15:49)
[2024-08-31] MEDS ORDERED: GLUCAGON FOR INJ 1 MG VIAL SQ PRN (15:49)
[2024-08-31] MEDS ORDERED: PHARMACY GLYCEMIC MGMT CONSULT PRN (15:49)
[2024-08-31] MEDS ORDERED: MAGNESIUM HYDROXIDE SUSP 30 ML UDC PO PRN (15:49)
[2024-08-31] MEDS ORDERED: ALBUTEROL HFA 8 GM INHALER INH PRN (15:49)
[2024-08-31] MEDS ORDERED: ALUMINUM/MAGNESIUM SUSP 30 ML UDC PO PRN (15:49)
[2024-08-31] MEDS ORDERED: GLUCOSE 10 TAB/TUBE PO PRN (15:49)
[2024-08-31] MEDS ORDERED: HYDROmorphone INJ 0.5 MG/0.5 ML SYR IV PRN (15:49)
[2024-08-31] MEDS ORDERED: NALOXONE HCL 0.4 MG/1 ML VIAL/CARP IV PRN (15:49)
[2024-08-31] MEDS ORDERED: NITROGLYCERIN 0.3 MG/1 TAB 100 TAB BTL SL PRN (15:49)
[2024-08-31] MEDS ORDERED: bisacodyL 10 MG SUPP PR PRN (15:49)
[2024-08-31] MEDS ORDERED: CARBOHYDRATES FOR HYPOGLYCEMIA PO PRN (15:49)
[2024-08-31] MEDS ORDERED: GLUCOSE 40% GEL 15 GM TUBE PO PRN (15:49)
[2024-08-31] MEDS: KETOROLAC TROMETHAMINE 15 MG/ML VIAL IV SCH (17:41)
[2024-08-31] MEDS: ASCORBIC ACID 500 MG TAB PO SCH (17:41)
[2024-08-31] MEDS: INSULIN ASPART PER UNIT CHARGE SC SCH (17:57)
[2024-08-31 18:01] VITALS: RESP 16
[2024-08-31] MEDS ORDERED: BUDESONIDE/FORMOTEROL FUMARATE 80/4.5 60 PUFFS/INHALER INH SCH (21:00)
[2024-08-31] MEDS: DULoxetine HCL 20 MG CAP PO SCH (21:09)
[2024-08-31] MEDS: CALCIUM 600MG + VIT D 400 IU TAB PO SCH (21:17)
[2024-08-31] MEDS: DOCUSATE SODIUM 100 MG CAP PO SCH (21:17)
[2024-08-31] MEDS: SENNA 8.6 MG TAB PO SCH ×2 (21:17)
[2024-08-31] MEDS: carvediloL 6.25 MG TAB PO SCH (21:18)
[2024-08-31] MEDS: ATORVASTATIN 40 MG TAB PO SCH (21:18)
[2024-08-31] MEDS: ceFAZolin 1000MG 1,000 MG/7.5 ML SYR IV SCH (21:20)
[2024-08-31] MEDS: TRANEXAMIC ACID / 0.7% NACL 1,000 MG/100 ML BAG IV SCH (21:30)
[2024-09-01] MEDS: oxyCODONE HCL IR 5 MG TAB (IMMEDIATE RELEASE) PO PRN (05:11)
[2024-09-01 06:23] LABS: Hematocrit (blood only) 40.1 % (37.0-47.0); Hemoglobin 13.6 g/dl (12.0-16.0); Mean Corpuscular Hemoglobin 29.8 pg (25.0-34.0); Mean Corpuscular Hgb Conc 33.9 g/dL (32.0-36.0); Mean Corpuscular Volume 87.7 fL (80.0-100.0); Mean Platelet Volume 12.7 fL (9.4-12.4); Platelet Count 153 K/uL (130-400); RDW Coefficient of Variation 12.2 % (11.5-14.5); RDW Standard Deviation 39.4 fL (36.4-46.3); Red Blood Count 4.57 M/uL (4.20-5.40); White Blood Count 12.34 K/ul (4.8-10.8)
[2024-09-01 06:34] LABS: BUN Creatinine Ratio 33.7 (10-20); Calcium 8.8 mg/dl (8.6-10.3); Creatinine Clr Calc Pharmacy 60.5 ml/min
[2024-09-01 07:52] VITALS: TEMP 97.7; O2SAT 97
[2024-09-01 08:07] VITALS: BP 149/85; PULSE 61
[2024-09-01] MEDS: amLODIPine BESYLATE 5 MG TAB PO SCH (08:08)
[2024-09-01] MEDS: ASPIRIN 325 MG ECTAB PO SCH (08:09)
[2024-09-01] MEDS: EZETIMIBE 10 MG TAB PO SCH (08:09)
[2024-09-01] MEDS: PRENATAL VITAMIN 1 TAB PO SCH (08:09)
[2024-09-01] MEDS: PANTOprazole 40 MG TAB PO SCH (08:10)
[2024-09-01] MEDS: lisinopril 20 MG TAB PO SCH (08:10)
[2024-09-01] MEDS: hydroCHLOROthiazide 25 MG TAB PO SCH (08:11)
[2024-09-01] MEDS: FLUTICASONE PROPIONATE NA SPR 16 GM BTL NAE SCH (08:14)
[2024-09-01] MEDS: dexAMETHasone 10 MG in SYRINGE 0 ML IV SCH (08:20)
[2024-09-01] MEDS ORDERED: MULTIVITAMIN TAB PO SCH (09:00)
--- NOTE | 2024-09-01 09:20 | Orthopedic Progress Note ---
Date of Service September 01, 2024 Assessment & Plan (1) Status post total left knee replacement: She was seen and examined by Dr. Dominguez. PT/OT wbat dvt prophylaxis: teds, scd's, plavix d/c planning: likely d/c home today, set up with home health. Her daughter is also planning to stay with her. Subjective . 64 year old patient POD 1 from left tka. Doing well. Not really having any pain. No other complaints. Review of Systems All systems reviewed & are unremarkable except as noted in HPI & below. Physical Exam .alert and oriented. NAD. BP slightly elevated, but vital signs stable Left leg: dressing clean, dry, intact. Able to dorsiflex and plantarflex. NVI Results & Data Results & Data Laboratory Results . Diagnostic Findings . PG Care Time/CCT Total # of Minutes Spent Total Time Spent with Patient: Total time spent is greater than 50% in coordination of care (as documented) at patient's floor/unit and/or counseling patient: Coding Level of Care Code 23643 Post Operative Follow-Up Diagnoses Status post total left knee replacement Z96.652
[2024-09-01] MEDS ORDERED: CLOPIDOGREL BISULFATE 75 MG TAB PO SCH (15:00)
== END 2024-09-01 11:47 | disposition home health service (06) ==
LOC: ASU 10:24 → 3E 10:24